=== PATIENT | male | born 1965 | race Caucasian/White ===

== ENCOUNTER 2023-12-29 09:06 | Observation (INO) | payer OTHER, SELFPAY ==
[2023-12-29 09:18] VITALS: BP 123/83; PULSE 69; RESP 18; TEMP 36.3; O2SAT 99; BMI 21.6
--- NOTE | 2023-12-29 09:31 | ED.GENADULT ---
HPI - General Adult General Time Seen by Provider: 09:33 Date Seen: 12/29/23 Stated complaint: Edema, shortness of breath Time Seen by Provider: 12/29/23 09:31 Source: patient and RN notes reviewed Mode of arrival: ambulatory Limitations: no limitations History of Present Illness HPI narrative: This 58-year-old male is coming in with 3 weeks of edema. He notes the edema started about a week after being hospitalized for 5 days with an E coli diarrheal illness. The diarrhea has subsided. He does have underlying HIV and states he is viral load is undetectable. He notes that he has been getting swelling from the chest down, does admit that he started to feel short of breath which brought him in. He also feels like his face feels edematous. He feels pain in his legs from the swelling. He notes his scrotum is swollen. He has dyspnea on exertion. He has had no chest pain, no coughing. He did go to [facility] yesterday and left after waiting for 5 hours to be seen. He has had no fevers or chills. He does endorse some abdominal bloating and generalized abdominal pain with this. Diarrhea has subsided and not return from his initial illness. Related Data Home Medications ?Medication ?Instructions ?Recorded ?Confirmed bupropion HCl 150 mg tablet,12 hr 150 mg PO DAILY 12/29/23 12/29/23 sustained-release duloxetine 30 mg capsule,delayed 30 mg PO DAILY 12/29/23 12/29/23 release emtricitabine 200 mg-rilpivirine 1 tab PO DAILY 12/29/23 12/29/23 25 mg-tenofovir alafenam 25 mg tablet (Alexaefsey) famotidine 20 mg tablet 20 mg PO DAILY 12/29/23 12/29/23 folic acid 1 mg tablet 1 mg PO DAILY 12/29/23 12/29/23 meloxicam 7.5 mg tablet 7.5 mg PO DAILY 12/29/23 12/29/23 multivitamin-ferrous 1 tab PO DAILY 12/29/23 12/29/23 fumarate-folic acid 18 mg-400 mcg tablet (Certavite-Antioxidant) oxybutynin chloride 5 mg tablet 5 mg PO DAILY 12/29/23 12/29/23 propranolol 10 mg tablet 10 mg PO DAILY 12/29/23 12/29/23 rosuvastatin 10 mg tablet 10 mg PO QPM 12/29/23 12/29/23 thiamine mononitrate (vit B1) 100 100 mg PO DAILY 12/29/23 12/29/23 mg tablet (Vitamin B-1 (mononitrate)) trazodone 100 mg tablet 200 mg PO QPM PRN 12/29/23 12/29/23 Allergies Allergy/AdvReac Type Severity Reaction Status Date / Time No Known Drug Allergies Allergy Verified 12/29/23 09:28 Review of Systems Status of ROS: Reports: 6 or more systems reviewed and unremarkable except as noted in History and below Exam Const: Vital Signs, click to edit/add: Vital Signs - 24 hr 12/29/23 09:18 Temperature 97.3 F L Pulse Rate [Left P ulse Oximeter] 69 Respiratory Rate 18 Blood Pressure [Le ft Upper Arm] 123/83 Pulse Oximetry 99 Oxygen Delivery Me thod Room Air This 58-year-old male is alert, interactive, no apparent distress. Sclera clear, pupils equal round reactive. Extraocular muscles intact. Face is atraumatic, do not appreciate significant facial swelling but patient notes that he feels his face is more swollen. Is able speak in complete sentences, or pharynx normal. Neck is slender, no jugular venous distension, no cervical adenopathy, no thyromegaly masses or nodules. Lungs are clear, good air entry, no wheezing or crackles, no tachypnea, no accessory muscle use. CV regular rate and rhythm, no murmur, normal S1-S2, no S3-S4. Abdomen is soft, not distended, no organomegaly, maybe mild discomfort generally but there is certainly no rebound or guarding, feel no masses, no organomegaly. He does have profound pedal and lower extremity edema to the knees, there is some mild excoriations without infection. The pitting edema is 3 to 4+. Scrotum is edematous as well. Documenting provider has reviewed patient's vital signs: yes Course Course ED Course: Will look at EKG and troponin, full complement of labs on this patient. He will be monitored on pulse oximetry here. Clinically he does not seem to have any pulmonary edema and think a two view chest x-ray should be sufficient. Do have concerns with his abdominal discomfort that it could be edema or ascites. Do think we need to consider doing CT imaging of his abdomen and patient does agree to do so. He is not hypoxic, no hemodynamic compromise at this point. Need to consider reasons for his edema. Thus, labs and imaging will be done. Reevaluation(s) Time of Reevaluation #1: 11:56 Reevaluation #1: Reviewed findings of anasarca with patient. Discussed observation versus outpatient management. We will give him a dose of IV Lasix here. He is preferring to come into the hospital so that he can have the echo done, work on diuresis. This is a new diagnosis for him. Have discussed with him that I have talked to our hospitalist, they are willing to put him under observation. Did review with him that the hospitalists brought up that he is on meloxicam, this could be an offending agent. The anasarca is causing the patient's some shortness of breath, significant lower extremity pain, new diagnosis for this patient in etiology is not completely clear at this time. Consultations Consultation #1: Did review with the hospitalist Dr. Tellez. He does agree to hospitalize this patient, likely observation however. Echo will be ordered. Will add on a urinalysis at his request, appropriate to check for protein. We will give this patient 60 mg IV Lasix. Time: 11:58 Vital Signs Vital signs: Initial Vital Signs Temperature 97.3 F L 12/29/23 09:18 Temperature Source Temporal Artery Scan 12/29/23 09:18 Pulse Rate 69 12/29/23 09:18 Pulse Rhythm Regular 12/29/23 09:18 Pulse Strength 3+ Normal 12/29/23 09:18 Respiratory Rate 18 12/29/23 09:18 Blood Pressure 123/83 12/29/23 09:18 Blood Pressure Mean 96 12/29/23 09:18 Blood Pressure Position Sitting 12/29/23 09:18 Pulse Oximetry 99 12/29/23 09:18 Oxygen Delivery Method Room Air 12/29/23 09:18 Vital Signs Temperature 97.3 F L 12/29/23 09:18 Pulse Rate 69 12/29/23 09:18 Respiratory Rate 18 12/29/23 09:18 Blood Pressure 123/83 12/29/23 09:18 Pulse Oximetry 99 12/29/23 09:18 Oxygen Delivery Method Room Air 12/29/23 09:18 Temperature 97.3 F L 12/29/23 09:18 Pulse Rate 69 12/29/23 09:18 Respiratory Rate 18 12/29/23 09:18 Blood Pressure 123/83 12/29/23 09:18 Pulse Oximetry 99 12/29/23 09:18 Oxygen Delivery Method Room Air 12/29/23 09:18 Medical Decision Making Lab Data Lab results reviewed: Yes I reviewed the patient's lab results Labs: Lab Results 12/29/23 Range/Units 09:50 WBC 5.09 (4.50-11.00) K/uL RBC 2.79 L (4.30-5.90) m/uL Hgb 9.7 L (13.5-17.5) gm/dL Hct 30.9 L (37.0-53.0) % MCV 111 H (80-100) fL MCH 35 H (26-34) pg MCHC 31 L (32-36) gm/dL RDW Coeff of Ebenezer 15.3 (11.5-15.5) % Plt Count 264 (140-440) K/uL Neut % (Auto) 64.0 (42.0-72.0) % Lymph % (Auto) 16.7 L (20-44) % Bowie % (Auto) 13.2 H (0.0-11.0) % Eos % (Auto) 4.7 (0.0-7.0) % Baso % (Auto) 1.0 (0.0-3.0) % Neut # (Auto) 3.26 (1.7-7.0) K/uL Lymph # (Auto) 0.90 (0.90-2.90) K/uL Bowie # (Auto) 0.70 (0.00-0.90) K/UL Eos # (Auto) 0.24 (0.00-0.50) K/uL Baso # (Auto) 0.05 (0.00-0.30) K/uL Abs Immat Gran (auto) 0.02 (0.00-0.30) K/uL Imm/Tot Granulo (auto) 0.4 % Sodium 138 (135-149) mmol/L Potassium 4.3 (3.6-5.1) mmol/L Chloride 111 (96-114) mmol/L Carbon Dioxide 23 (20-32) mmol/L Anion Gap 4 L (7-15) mEq/L BUN 24 (7-30) mg/dL Creatinine 1.0 (0.5-1.5) mg/dL Estimated Creat Clear 77.26 Estimated GFR 88 ml/min Glucose 88 (60-115) mg/dL Calcium 8.6 (8.4-10.6) mg/dL Magnesium 2.3 (1.5-2.6) mg/dL Total Bilirubin 0.2 (0.1-1.5) mg/dL Direct Bilirubin 0.2 (0.0-0.5) mg/dL AST 21 (12-35) U/L ALT 9 (4-50) U/L Alkaline Phosphatase 50 (40-150) U/L Troponin I < 0.01 L (0.01-0.04) ng/mL C-Reactive Protein 1.3 H (0.5-1.0) mg/dL NT-Pro-B Natriuret Pep 2920 pg/mL Total Protein 6.2 (6.0-8.3) g/dL Albumin 3.6 (3.3-5.0) g/dL TSH 2.130 (0.270-4.200) uIU/mL Imaging Data Chest x-ray: Attestation: I have reviewed the pertinent imaging results. My impression: See blunting of the costophrenic angles, suggests small pleural effusions. I do not appreciate overt congestive heart failure within the lung parenchyma a my preliminary review. Radiologist's impression: Patient: DEVORA HATCH Facility:?[facility] Patient ID:?[id number] Site Patient ID:?[id number]. Site :?[id number] Study:?XRay-Chest 2 VIEW-12/29/2023 10:13:02 AM Ordering Physician:?Todd Walton Final Report: Indication: SOB, edema. Technique: Chest 2 views. Comparison: None. Findings/Impression: Cardiovascular and mediastinum: Heart size and vasculature are normal in caliber and appearance. Lungs and pleural spaces: Small bilateral pleural effusions with underlying basilar consolidations, at least partially reflecting atelectasis. No pneumothorax. Bones and soft tissues: No significant findings. Dictated by Lenard Kan MD @ 12/29/2023 10:30:13 AM (Electronic Signature) CT scan - abdomen: Attestation: I have reviewed the pertinent imaging results. Radiologist's impression: Patient: DEVORA HATCH Facility:?[facility] Patient ID:?[id number] Site Patient ID:?[id number]. Site :?[id number] Study:?CT-Abdomen/Pelvis W/71CC [id number]/28/2024 10:31:44 AM Ordering Physician:?Todd Walton Final Report: INDICATION: Edema, shortness of breath. TECHNIQUE: CT abdomen and pelvis acquired with 71 cc Omnipaque 370 IV contrast. COMPARISON: None. FINDINGS: Lower chest: Small bilateral pleural effusions with underlying basilar consolidations, least partially reflecting atelectasis. Liver: Unremarkable. Normal in size and attenuation. No suspicious masses. Gallbladder and bile ducts: Unremarkable. No stones or inflammation. No biliary dilatation. Pancreas: Unremarkable. No mass or inflammation. Spleen: Unremarkable. Normal in size. No masses. Adrenal glands: Left adrenal nodule measures 2.3 centimeters and approximately 45 Hounsfield units (2/33). Unremarkable right adrenal gland Kidneys: Unremarkable. No suspicious masses, stones, or hydronephrosis. GI tract: Unremarkable. Normal in caliber. No sign of mass or inflammation. Normal appendix. Vasculature: Abdominal aorta is normal in caliber. Mesenteric arteries are patent. Lymph nodes: No lymphadenopathy. Peritoneum/Abdominal Wall: Moderate anasarca. No free peritoneal air or significant free fluid. Pelvis: Unremarkable. Bones: Unremarkable for age. IMPRESSION: 1. Moderate anasarca with small bilateral pleural effusions, indicating volume overload. 2. Otherwise, no acute abnormalities in the abdomen or pelvis. 3. Left adrenal 2.3 cm nodule is indeterminate. Recommend nonemergent adrenal protocol CT for further characterization. Please note that all CT scans at this facility use dose modulation, iterative reconstruction, and/or weight-based dosing when appropriate to reduce radiation dose to as low as reasonably achievable. Dictated by Lenard Kan MD @ 12/29/2023 10:45:11 AM (Electronic Signature) ECG Data Attestation: I personally reviewed and interpreted this ECG as follows: (Normal sinus rhythm, 62 beats per minute. Q-waves V1 V2 with flipped T-waves but no ST segment change.) Prior ECG tracings: not available for review Discharge Plan Discharge Clinical Impression: Anasarca Patient Disposition: Admitted As Observation Prescriptions: No Action bupropion HCl 150 mg tablet sustained-release 12 hr 150 mg PO DAILY meloxicam 7.5 mg tablet 7.5 mg PO DAILY propranolol 10 mg tablet 10 mg PO DAILY famotidine 20 mg tablet 20 mg PO DAILY trazodone 100 mg tablet 200 mg PO QPM PRN folic acid 1 mg tablet 1 mg PO DAILY oxybutynin chloride 5 mg tablet 5 mg PO DAILY rosuvastatin 10 mg tablet 10 mg PO QPM duloxetine 30 mg capsule,delayed release(DR/EC) 30 mg PO DAILY Certavite-Antioxidant 18-400 mg-mcg tablet 1 tab PO DAILY thiamine mononitrate (vit B1) [Vitamin B-1 (mononitrate)] 100 mg tablet 100 mg PO DAILY Odefsey 200-25-25 mg tablet 1 tab PO DAILY Follow Up/Referrals: Provider,Not a Local [Primary Care Provider] -
[2023-12-29 09:39] VITALS: O2SAT 94
--- NOTE | 2023-12-29 09:39 | CRLHL7_ITS ---
For Patients: As a result of the Century Cures Act, medical imaging exams and procedure reports are released immediately into your electronic medical record. You may view this report before your referring provider. If you have questions, please contact your health care provider. INDICATION: Edema, shortness of breath. TECHNIQUE: CT abdomen and pelvis acquired with 71 cc Omnipaque 370 IV contrast. COMPARISON: None. FINDINGS: Lower chest: Small bilateral pleural effusions with underlying basilar consolidations, least partially reflecting atelectasis. Liver: Unremarkable. Normal in size and attenuation. No suspicious masses. Gallbladder and bile ducts: Unremarkable. No stones or inflammation. No biliary dilatation. Pancreas: Unremarkable. No mass or inflammation. Spleen: Unremarkable. Normal in size. No masses. Adrenal glands: Left adrenal nodule measures 2.3 centimeters and approximately 45 Hounsfield units (2/33). Unremarkable right adrenal gland Kidneys: Unremarkable. No suspicious masses, stones, or hydronephrosis. GI tract: Unremarkable. Normal in caliber. No sign of mass or inflammation. Normal appendix. Vasculature: Abdominal aorta is normal in caliber. Mesenteric arteries are patent. Lymph nodes: No lymphadenopathy. Peritoneum/Abdominal Wall: Moderate anasarca. No free peritoneal air or significant free fluid. Pelvis: Unremarkable. Bones: Unremarkable for age. IMPRESSION: 1. Moderate anasarca with small bilateral pleural effusions, indicating volume overload. 2. Otherwise, no acute abnormalities in the abdomen or pelvis. 3. Left adrenal 2.3 cm nodule is indeterminate. Recommend nonemergent adrenal protocol CT for further characterization. Please note that all CT scans at this facility use dose modulation, iterative reconstruction, and/or weight-based dosing when appropriate to reduce radiation dose to as low as reasonably achievable. Dictated by Lenard Kan MD @ 12/29/2023 10:45:11 AM (Electronically Signed)
--- NOTE | 2023-12-29 09:40 | CRLHL7_ITS ---
For Patients: As a result of the Cures Act, medical imaging exams and procedure reports are released immediately into your electronic medical record. You may view this report before your referring provider. If you have questions, please contact your health care provider. Indication: SOB, edema. Technique: Chest 2 views. Comparison: None. Findings/Impression: Cardiovascular and mediastinum: Heart size and vasculature are normal in caliber and appearance. Lungs and pleural spaces: Small bilateral pleural effusions with underlying basilar consolidations, at least partially reflecting atelectasis. No pneumothorax. Bones and soft tissues: No significant findings. Dictated by Lenard Kan MD @ 12/29/2023 10:30:13 AM (Electronically Signed)
[2023-12-29 10:00] LABS: Basophils Absolute Auto 0.05 K/uL (0.00-0.30); Eosinophils Absolute Auto 0.24 K/uL (0.00-0.50); Eosinophils Percent Auto 4.7 % (0.0-7.0); Hematocrit 30.9 % (37.0-53.0); Hemoglobin* 9.7 gm/dL (13.5-17.5); Immature Granulocytes Abs Auto 0.02 K/uL (0.00-0.30); Immature Granulocytes Pct Auto 0.4 %; Lymphocytes Percent Auto 16.7 % (20-44); Mean Corpuscular HGB Conc 31 gm/dL (32-36); Mean Corpuscular Hemoglobin 35 pg (26-34); Mean Corpuscular Volume 111 fL (80-100); Monocytes Percent Auto 13.2 % (0.0-11.0); Neutrophils Absolute Auto 3.26 K/uL (1.7-7.0); Platelet Count* 264 K/uL (140-440); RDW Coefficient of Variation % 15.3 % (11.5-15.5); Red Blood Count 2.79 m/uL (4.30-5.90); White Blood Count* 5.09 K/uL (4.50-11.00)
[2023-12-29 10:03] LABS: Slide Review Reflex No
[2023-12-29 10:16] LABS: Chloride* 111 mmol/L (96-114)
[2023-12-29 10:17] LABS: Albumin* 3.6 g/dL (3.3-5.0); Potassium* 4.3 mmol/L (3.6-5.1); Sodium* 138 mmol/L (135-149)
[2023-12-29 10:19] LABS: Est. Creatinine Clearance* 77.26; Estimated Glomerular Filt Rate 88 ml/min
[2023-12-29 10:20] LABS: Alanine Aminotransferase* 9 U/L (4-50); Alkaline Phosphatase* 50 U/L (40-150); Anion Gap 4 mEq/L (7-15); Aspartate Amino Transferase* 21 U/L (12-35); Bilirubin Direct* 0.2 mg/dL (0.0-0.5); Bilirubin Total* 0.2 mg/dL (0.1-1.5); Blood Urea Nitrogen* 24 mg/dL (7-30); Carbon Dioxide* 23 mmol/L (20-32); Glucose* 88 mg/dL (60-115); Total Protein* 6.2 g/dL (6.0-8.3)
[2023-12-29 10:21] LABS: Calcium* 8.6 mg/dL (8.4-10.6); Magnesium* 2.3 mg/dL (1.5-2.6)
[2023-12-29 10:23] LABS: C Reactive Protein* 1.3 mg/dL (0.5-1.0)
[2023-12-29 10:34] LABS: NT Pro B Type NatriureticPept* 2920 pg/mL; Troponin I* < 0.01 ng/mL (0.01-0.04)
[2023-12-29] MEDS: FUROSEMIDE 10 MG/ML inj 40 MG IVP (13:14)
[2023-12-29 13:23] VITALS: BP 137/81; PULSE 68; RESP 18; TEMP 36.5; O2SAT 99; BMI 21.7
[2023-12-29 13:36] LABS: Appearance Urine Clear (Clear); Bilirubin Urine Negative (Negative); Blood Urine Trace-intact (Negative); Color Urine Light yellow (Yellow); Glucose Urine Negative (Negative); Ketones Urine Negative (Negative); Leukocyte Esterase Urine Negative (Negative); Nitrite Urine Negative (Negative); Protein Urine Negative (Negative); Specific Gravity Urine 1.025 (1.000-1.030); Urobilinogen Urine 0.2 (0.2-1.0)
[2023-12-29 13:53] LABS: RBC Urine 0-2 (0-2); WBC Urine 0-2 (0-5)
--- NOTE | 2023-12-29 13:53 | PM.IMHP1 ---
Hospitalist- H&P: HPI History of Present Illness Date Seen: 12/29/23 Chief complaint: Edema, shortness of breath Narrative: Edmar Zamora is a 58 year old man this with a 3 week history of increasing edema and a 1 week history of increasing dyspnea with exertion. Historically has not had edema. Does not have cardiopulmonary medical conditions. Has not had hepatic or renal conditions. Does have HIV positive status and is being actively treated for the same successfully. Does take meloxicam 7.5 mg daily for arthralgias, long-term. Over the past 3-4 weeks he has been misusing ibuprofen 1000 mg 4-5 times daily sometimes in combination with acetaminophen 1000 mg to treat the dental pain. He has not seen a dentist for this. Notes that the analgesia he obtains from this has been adequate in satisfactory. Over the past week he has had intermittent episodes of dyspnea with exertion. Denies paroxysmal nocturnal dyspnea, orthopnea, or dyspnea at rest. Denies chest heaviness, pressure, tightness, or pain. Denies palpitations or chest fluttering. Denies syncope or near-syncope. Denies dysuria, urgency, frequency, hematuria. Denies frothy urine. Late November 2023 to early December 2023 patient had severe diarrhea illness. His normal weight is 135 lb. In consequence of this diarrhea illness his weight was down to 105 lb. He was hospitalized at [facility] for the same. He was found to have enterotoxigenic E coli and treated with short course of ciprofloxacin. Diarrhea resolved. Since then his appetite has improved substantially such that he tells me he is eating 3-4 times what he was eating when he was ill. He has a history of anal canal cancer. Was treated with radiation therapy and chemotherapy for the same starting in 2017 through 2018. Since then he has had 12-15 bowel movements daily. Has had increased anal pain. He is only now starting to work with a open cut examiner at [facility] in regard to this. Has ongoing followup scheduled for the same. He tells me that since the diarrhea illness resolved in early December, he is back to his usual bowel elimination patterns. Review of Systems Status of ROS: Reports: 6 or more systems reviewed and unremarkable except as noted in History and below Narrative: Continues to smoke regularly. History of alcohol use disorder in remission. Not actively drinking alcohol. Denies use of any other street or recreational drugs. Receives his medical care at [facility]. Only since his recent diarrhea illness has he been receiving more care for the problems that he has had for some time, including 12-15 bowel movements daily and anal pain. Once again he has not seen a dentist even though he has had dentalgia now for well over a month. 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 non-steroidal anti-inflammatories (NSAID) (ICD-10) Tubular adenoma of colon ?D12.6 - Benign neoplasm of colon, unspecified (ICD-10) History of anal cancer ?Z85.048 - Personal history of other malignant neoplasm of rectum, rectosigmoid junction, and anus (ICD-10) History of alcohol use disorder ?Z87.898 - Personal history of other specified conditions (ICD-10) Tobacco use disorder ?F17.200 - Nicotine dependence, unspecified, uncomplicated (ICD-10) Moderate recurrent major depression ?F33.1 - Major depressive disorder, recurrent, moderate (ICD-10) Failure to thrive Protein calorie malnutrition ?E46 - Unspecified protein-calorie malnutrition (ICD-10) Intestinal infection due to enterotoxigenic E. coli ?A04.1 - Enterotoxigenic Escherichia coli infection (ICD-10) HIV positive ?Z21 - Asymptomatic human immunodeficiency virus [HIV] infection status (ICD-10) Social History Narrative: Receives medical care at [facility]. DNR/DNI resuscitation. Sister, Merlyn Kerr, is his POA should that be needed, . 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 Meds Home Medications and Allergies Home Medications ?Medication ?Instructions ?Recorded ?Confirmed ?Type acetaminophen 500 mg tablet 1,250 mg PO .2-3X/DAY PRN 12/29/23 12/29/23 History bupropion HCl 150 mg tablet,12 hr 150 mg PO DAILY 12/29/23 12/29/23 History sustained-release duloxetine 30 mg capsule,delayed 30 mg PO DAILY 12/29/23 12/29/23 History release emtricitabine 200 mg-rilpivirine 1 tab PO DAILY 12/29/23 12/29/23 History 25 mg-tenofovir alafenam 25 mg tablet (Odefsey) famotidine 20 mg tablet 20 mg PO HS 12/29/23 12/29/23 History folic acid 1 mg tablet 1 mg PO DAILY 12/29/23 12/29/23 History ibuprofen 200 mg tablet 1,000 mg PO .2-3X/DAY PRN 12/29/23 12/29/23 History meloxicam 7.5 mg tablet 7.5 mg PO DAILY 12/29/23 12/29/23 History multivitamin-ferrous 1 tab PO DAILY 12/29/23 12/29/23 History fumarate-folic acid 18 mg-400 mcg tablet (Certavite-Antioxidant) ondansetron HCl 4 mg tablet 4 mg PO Q8H PRN 12/29/23 12/29/23 History oxybutynin chloride 5 mg tablet 5 mg PO HS 12/29/23 12/29/23 History propranolol 10 mg tablet 10 mg PO DAILY 12/29/23 12/29/23 History rosuvastatin 10 mg tablet 10 mg PO DAILY 12/29/23 12/29/23 History thiamine mononitrate (vit B1) 100 100 mg PO DAILY 12/29/23 12/29/23 History mg tablet (Vitamin B-1 (mononitrate)) trazodone 100 mg tablet 200 mg PO HS 12/29/23 12/29/23 History trazodone 50 mg tablet 25 mg PO TIDWMEAL 12/29/23 12/29/23 History Allergies Allergy/AdvReac Type Severity Reaction Status Date / Time No Known Drug Allergies Allergy Verified 12/29/23 09:28 Exam Narrative: Exam Narrative: I examine him in the emergency department. Appears comfortable no acute distress. Vision and hearing are adequate. Alert and oriented x4. Friendly, articulate, cooperative. Normal external auditory canals and tympanic membranes. Midline nasal septum. Dentition in only moderate repair. Tobacco stained teeth. No tenderness to palpation of face teeth and jaw. No icterus. Conjugate gaze. No nystagmus. Pupils equally round and reactive to light and accommodation. Neck is supple. Midline trachea. No JVD or hepatojugular reflux. No carotid bruits. No head neck lymphadenopathy. No axillary lymphadenopathy. Lungs are clear to auscultation. May have some end inspiratory fine crackles on the left base otherwise clear to auscultation without wheezing or rhonchi. Chest wall excursions are full with respiratory efforts. Does not have CVA tenderness to thumping. Heart tones with regular rhythm, normal S1-S2 without murmur, gallop, or rub. PMI not laterally displaced. Abdomen with active bowel sounds, soft, nontender. No organomegaly or masses. Pitting edema in feet, legs, thighs, presacral area. Has swelling in scrotum and on his phalus. Protuberant abdomen with possible skin edema. Loss of skin marking in fingers and difficulty for patient to handle a pen or pencil when writing due to his sense of swelling in his hands. Skin is intact. No focal motor neurologic deficits. Cranial nerves 3-12 grossly normal. No tremor, asterixis, or ataxia. Independent in transfer, station, and gait. Const: Vital Signs, click to edit/add: Vital Signs - 24 hr 12/29/23 09:18 12/29/23 09:39 Temperature 97.3 F L Pulse Rate [Left P ulse Oximeter] 69 Respiratory Rate 18 Blood Pressure [Le ft Upper Arm] 123/83 Pulse Oximetry 99 94 Oxygen Delivery Me thod Room Air Hospitalist - H&P: Result Labs Labs: Short CBC 12/29/23 Range/Units 09:50 WBC 5.09 (4.50-11.00) K/uL Hgb 9.7 L (13.5-17.5) gm/dL Hct 30.9 L (37.0-53.0) % Plt Count 264 (140-440) K/uL BMP 12/29/23 09:50 Sodium 138 Potassium 4.3 Chloride 111 Carbon Dioxide 23 BUN 24 Creatinine 1.0 Glucose 88 Calcium 8.6 Cardiac Enzymes 12/29/23 Range/Units 09:50 Troponin I < 0.01 L (0.01-0.04) ng/mL Liver Function 12/29/23 Range/Units 09:50 Total Bilirubin 0.2 (0.1-1.5) mg/dL Direct Bilirubin 0.2 (0.0-0.5) mg/dL AST 21 (12-35) U/L ALT 9 (4-50) U/L Alkaline Phosphatase 50 (40-150) U/L Albumin 3.6 (3.3-5.0) g/dL Urine 12/29/23 Range/Units 13:20 Urine Color Light yellow (Yellow) Urine Appearance Clear (Clear) Urine pH 7.0 (5.0-8.5) Ur Specific Flomot 1.025 (1.000-1.030) Urine Protein Negative (Negative) Urine Glucose (UA) Negative (Negative) ECG ECG interpretation date: 12/29/23 Interpretation: Normal sinus rhythm. Imaging Chest x-ray: Attestation: I have reviewed the pertinent imaging results. Radiologist's impression: Minimal bilateral pleural effusion. Minimal atelectasis. CT scan - abdomen: Radiologist's impression: 1. Moderate anasarca with small bilateral pleural effusions, indicating volume overload. 2. Otherwise, no acute abnormalities in the abdomen or pelvis. 3. Left adrenal 2.3 cm nodule is indeterminate. Recommend nonemergent adrenal protocol CT for further characterization. Assessment and Plan Assessment and plan (1) NSAID long-term use: Problem comment: - meloxicam 7.5 mg once daily Status: Acute (2) NSAIDs adverse reaction: Problem comment: - suspect anasarca related to misuse of ibuprofen over last 3+ weeks to treat dental pain Status: Acute (3) Anasarca: Problem comment: - Noted for past 3 weeks - D/Dx: iatrogenic related to misuse of NSAIDs, re-feeding syndrome, protein losing nephropathy, cardiac, liver, kidney - stop all NSAIDs, use APAP and oxycodone for pain control for now and must see dentist regarding dental pain - initiate furosemide 40 mg IV and start furosemide 40 mf po tomorrow AM - TTE ordered - check urine analysis Status: Acute (4) Failure to thrive: Problem comment: - Late November 2023, eventually found to have enterotoxigenic e coli diarrhea that resolved with treatment - weight was as low as 106 pounds, normal weight 135 pounds, on 12/29/23 weight was 148# at his home, with anasarca - may have developed an element of re-feeding syndrome since discharged from [facility] about 3 weeks ago. Status: Acute (5) Pain, dental: Problem comment: - has not seen dentist about this - has been misusing ibuprofen 1,000 mg po q 4-6 hours and acetaminophen 1,000 mg po q 4-6 hours for pain for past 2-3 weeks Status: Acute (6) HIV positive: Problem comment: - Follows at [facility], treated with ODEFSEY (fdfqijkuaeldq-gwstxzojlal-lwuasneud alafenamide) Status: Acute (7) Tobacco use disorder: Problem comment: - on-going Status: Acute (8) Elevated brain natriuretic peptide (BNP) level: Problem comment: - furosemide 40 mg IV - transthoracic echocardiogram pending Status: Acute (9) Anemia: Problem comment: - hemoglobin 9.7 on 12/29/2023 Status: Acute Plan 1. Reviewed impression and recommendations with patient. 2. Stress that we can initiate efforts to assess and support him at this time but he may require additional assessment and interventions beyond what we would initiate here in our hospital at this time. Urged him that he will need follow up with his [facility] physician staff there. 3. Answered his questions to satisfaction. 4. Patient agreeable with above stated plans and recommendations. Total Time Spent Total Time Spent: 70 minutes
[2023-12-29 15:00] VITALS: BP 119/86; PULSE 68; PULSE 84; RESP 18; TEMP 36.6; O2SAT 97
[2023-12-29] MEDS: ACETAMINOPHEN 325 MG TABLET 650 MG PO (17:46)
[2023-12-29] MEDS: OXYCODONE 5 MG TABLET PO ×2 (18:28→22:09)
[2023-12-29 19:00] VITALS: BP 114/66; PULSE 82; RESP 16; TEMP 36.5; O2SAT 96
--- NOTE | 2023-12-29 19:55 | PC.NURSE ---
Pt. VSS. A & O x4. Ambulates independently. Tolerates a regular diet. IV in left AC and intact. Plus 3 pitting edema in BLE with pain rating between 5-7. Complains of SOB with exertion. On room air.
[2023-12-29] MEDS: TRAZODONE HCL 50 MG TABLET 200 MG PO (20:37)
[2023-12-29] MEDS: SODIUM CHLORIDE 0.9 % (FLUSH) 10 ML SYRINGE 5 ML IVF (20:37)
[2023-12-29] MEDS: oxyBUTYnin chloride 5 MG TABLET PO (20:37)
[2023-12-29] MEDS: FAMOTIDINE 20 MG TABLET PO (20:37)
[2023-12-29 22:00] VITALS: BP 117/83; PULSE 66; PULSE 67; RESP 16; TEMP 36.3; O2SAT 97
[2023-12-29] MEDS: CYCLOBENZAPRINE HCL 10 MG TABLET PO (22:09)
[2023-12-30] VITALS (9 sets, daily range): BP systolic 108–134; BP diastolic 65–85; PULSE 68–87; RESP 16–18; TEMP 36.4–36.8; O2SAT 94–99
[2023-12-30] MEDS: OXYCODONE 5 MG TABLET PO ×3 (02:50→14:59)
[2023-12-30] MEDS: ACETAMINOPHEN 325 MG TABLET 650 MG PO ×3 (02:50→14:58)
[2023-12-30 06:29] LABS: Hematocrit 31.6 % (37.0-53.0); Hemoglobin* 10.2 gm/dL (13.5-17.5); Mean Corpuscular HGB Conc 32 gm/dL (32-36); Mean Corpuscular Hemoglobin 35 pg (26-34); Mean Corpuscular Volume 108 fL (80-100); Platelet Count* 275 K/uL (140-440); Red Blood Count 2.92 m/uL (4.30-5.90); White Blood Count* 3.86 K/uL (4.50-11.00)
[2023-12-30 06:30] LABS: Slide Review Reflex No
[2023-12-30 06:43] LABS: Chloride* 109 mmol/L (96-114); Sodium* 139 mmol/L (135-149)
[2023-12-30 06:45] LABS: Est. Creatinine Clearance* 73.59; Estimated Glomerular Filt Rate 88 ml/min
[2023-12-30 06:46] LABS: Anion Gap 7 mEq/L (7-15); Blood Urea Nitrogen* 22 mg/dL (7-30); Carbon Dioxide* 23 mmol/L (20-32); Glucose* 88 mg/dL (60-115); Phosphorus* 4.4 mg/dL (2.5-4.5)
[2023-12-30 06:47] LABS: Calcium* 8.6 mg/dL (8.4-10.6); Magnesium* 2.4 mg/dL (1.5-2.6)
--- NOTE | 2023-12-30 06:59 | PC.NURSE ---
SHIFT NOTE : Pt pleasant, cooperative, A&O. VSS on RA. Tele shows NSR with a prolonged QT, MD updated. Up independent and tolerating well. Pt reports pain in his legs and DAY, reports relief from Tylenol and oxycodone. Denies N/V and CP. Pt to have an echo today. Pitting edema in BLE, TEDS applied.
[2023-12-30 07:01] LABS: NT Pro B Type NatriureticPept* 1510 pg/mL; Troponin I* < 0.01 ng/mL (0.01-0.04)
[2023-12-30] MEDS: PROPRANOLOL 20 MG TABLET 10 MG PO (08:38)
[2023-12-30] MEDS: DULOXETINE 30 MG CAPSULE DR PO (08:38)
[2023-12-30] MEDS: FUROSEMIDE 40 MG TABLET PO (08:38)
[2023-12-30] MEDS: ROSUVASTATIN CALCIUM 10 MG TABLET PO (08:38)
[2023-12-30] MEDS: THIAMINE 100 MG TABLET PO (08:39)
[2023-12-30] MEDS: FOLIC ACID 1 MG TABLET PO (08:39)
[2023-12-30] MEDS: buPROPion HCL SR 150 MG TAB PO (08:39)
[2023-12-30] MEDS: MULTIVITAMIN/MINERALS 1 TABLET 1 TAB PO (08:39)
--- NOTE | 2023-12-30 10:07 | NUTR.NU ---
MEREDITHN with MD consult for low sodium diet education. Patient admitted for anasarca. Current weight 139 lb 1 oz; height 5ft 9in; BMI 20.5 kg/m2. Current diet is 2 gram sodium. Meal intakes since admit have been adequate at 100% x2. RDN visited with patient whom reports he has been trying to change his diet recently. He has been focusing on whole foods such as raw fruits and vegetables, and has been picking up fresh chicken and meat. He lives alone and cooks for only himself which he reports can be difficult at times. He has also been trying to use less salt-containing seasonings. He agreed to receive diet education related to low sodium diet. Verbal and written information provided. Recommend limiting sodium to 2,000 mg per day. Discussed foods recommended and to avoid. Handouts provided from [facility] [employer] on heart healthy nutrition therapy, sodium content of foods, heart healthy label reading tips, sodium-free flavoring tips and heart healthy cooking and shopping tips. Patient verbalized understanding. RDN's contact information was provided and patient was encouraged to call with questions.
[2023-12-30] MEDS: SODIUM CHLORIDE 0.9 % (FLUSH) 10 ML SYRINGE 5 ML IVF ×2 (14:59→21:05)
--- NOTE | 2023-12-30 16:08 | PM.IMPN1 ---
Progress Note: A&P Assessment and plan (1) Anasarca: Problem details: Noted for past 3 weeks. Renal and liver function appears normal, no proteinuria. Denies chest pain. Responded well to IV lasix (down 3kg) - D/Dx: iatrogenic related to misuse of NSAIDs, re-feeding syndrome, cardiac - stop all NSAIDs, use APAP and oxycodone for pain control for now and must see dentist regarding dental pain - Continue oral lasix 40mg with renal monitoring - TTE ordered, pending and will likely need to be done as an outpatient Status: Acute (2) Prolonged QT interval: Problem details: EKG shows long QT. Pharmacy reviewed medications and he is on a relatively high dose of trazodone. -Will decrease trazodone to 100mg QHS -Repeat EKG with PCP Status: Acute (3) Anemia: Problem details: hemoglobin 9.7 on 12/29/2023, improved to 10.2 with diuresis. Status: Acute (4) Elevated brain natriuretic peptide (BNP) level: Problem details: - Continue furosemide 40 mg PO - transthoracic echocardiogram pending Status: Acute (5) Failure to thrive: Problem details: - Late November 2023, eventually found to have enterotoxigenic e coli diarrhea that resolved with treatment - weight was as low as 106 pounds, normal weight 135 pounds, on 12/29/23 weight was 148# at his home, with anasarca - may have developed an element of re-feeding syndrome since discharged from [facility] about 3 weeks ago. Status: Acute (6) Pain, dental: Problem details: - has not seen dentist about this - has been misusing ibuprofen 1,000 mg po q 4-6 hours and acetaminophen 1,000 mg po q 4-6 hours for pain for past 2-3 weeks Status: Acute (7) NSAIDs adverse reaction: Problem details: - suspect anasarca related to misuse of ibuprofen over last 3+ weeks to treat dental pain Status: Acute (8) NSAID long-term use: Problem details: - meloxicam 7.5 mg once daily on hold Status: Acute (9) Tobacco use disorder: Problem details: - on-going Status: Acute (10) HIV positive: Problem details: - Follows at [facility], treated with ODEFSEY (orelujjauobkk-yasercjhsvb-aksqkaoim alafenamide) Status: Acute Plan Continue diuresis with electrolyte/renal monitoring Likely will need outpatient echo, follow up depends on results Subjective Date Seen: 12/30/23 Interval history: Edmar is seen and examined. He feels significantly improved today. He is awaiting echocardiogram. Breathing continues to be a little short after ambulating to bathroom, but otherwise has no complaints. EXAM General- well appearing, no distress, resting in bed HEENT- NCAT Resp- CTAB, no crackles in either base CV- RRR, no m/g/r Extremities- bilateral pedal edema to lower cadet Neuro- nonfocal, no lateralizing deficits Exam Const: Vital Signs, click to edit/add: Vital Signs - 24 hr 12/29/23 19:00 12/29/23 22:00 12/29/23 22:00 Temperature 97.7 F Pulse Rate 67 Pulse Rate [Pulse Oximeter] 82 66 Respiratory Rate 16 16 Blood Pressure [Le ft Arm] 114/66 Pulse Oximetry 96 Oxygen Delivery Me thod Room Air 12/29/23 22:00 12/29/23 22:00 12/30/23 02:30 Temperature 97.4 F L 97.6 F Pulse Rate Pulse Rate [Pulse Oximeter] 67 86 Respiratory Rate 16 16 16 Blood Pressure [Le ft Arm] 117/83 134/76 Pulse Oximetry 97 97 96 Oxygen Delivery Me thod Room Air Room Air Room Air 12/30/23 07:52 12/30/23 08:41 12/30/23 08:41 Temperature Pulse Rate 68 Pulse Rate [Pulse Oximeter] 84 Respiratory Rate 16 16 Blood Pressure [Le ft Arm] Pulse Oximetry 97 Oxygen Delivery Me thod Room Air 12/30/23 08:41 12/30/23 11:00 12/30/23 14:57 Temperature 97.5 F L 98.0 F Pulse Rate Pulse Rate [Pulse Oximeter] 84 70 77 Respiratory Rate 16 16 16 Blood Pressure [Le ft Arm] 114/75 125/85 115/70 Pulse Oximetry 94 98 99 Oxygen Delivery Me thod Room Air Room Air Room Air Labs Labs: Laboratory Results - last 24 hr 12/30/23 06:06 WBC 3.86 L RBC 2.92 L Hgb 10.2 L Hct 31.6 L MCV 108 H MCH 35 H MCHC 32 Plt Count 275 Sodium 139 Potassium 4.0 Chloride 109 Carbon Dioxide 23 Anion Gap 7 BUN 22 Creatinine 1.0 Estimated Creat Clear 73.59 Estimated GFR 88 Glucose 88 Calcium 8.6 Phosphorus 4.4 Magnesium 2.4 Troponin I < 0.01 L NT-Pro-B Natriuret Pep 1518
--- NOTE | 2023-12-30 19:39 | PC.NURSE ---
Nursing Care Hours: [id number] Pt this shift calm and cooperative, alert and oriented. c/o pain to L upper teeth. Visualized missing fillings, but no drainage or swollen area. Treated per eMAR. Swelling to LE, 2+ in feet up to ankles. Confirms still feeling SOB with exertion. VSS. Tele shows NSR with prolong QT. Pt showered today. Tolerating regular diet. No BM. ECHO moved from tonight to outpatient tomorrow morning after discharge.
[2023-12-30] MEDS: TRAZODONE HCL 50 MG TABLET 100 MG PO (21:04)
[2023-12-30] MEDS: oxyBUTYnin chloride 5 MG TABLET PO (21:04)
[2023-12-30] MEDS: FAMOTIDINE 20 MG TABLET PO (21:04)
[2023-12-30] MEDS: ZOLPIDEM 5 MG TABLET 10 MG PO (22:07)
[2023-12-31] MEDS: OXYCODONE 5 MG TABLET PO (00:02)
[2023-12-31 06:56] LABS: Basophils Absolute Auto 0.05 K/uL (0.00-0.30); Basophils Percent Auto 1.1 % (0.0-3.0); Eosinophils Absolute Auto 0.25 K/uL (0.00-0.50); Eosinophils Percent Auto 5.3 % (0.0-7.0); Hemoglobin* 10.7 gm/dL (13.5-17.5); Immature Granulocytes Abs Auto 0.01 K/uL (0.00-0.30); Immature Granulocytes Pct Auto 0.2 %; Lymphocytes Percent Auto 16.1 % (20-44); Mean Corpuscular HGB Conc 32 gm/dL (32-36); Mean Corpuscular Hemoglobin 35 pg (26-34); Mean Corpuscular Volume 108 fL (80-100); Monocytes Percent Auto 15.1 % (0.0-11.0); Neutrophils Absolute Auto 2.93 K/uL (1.7-7.0); Neutrophils Percent Auto 62.2 % (42.0-72.0); Platelet Count* 311 K/uL (140-440); RDW Coefficient of Variation % 14.8 % (11.5-15.5); Red Blood Count 3.05 m/uL (4.30-5.90); White Blood Count* 4.71 K/uL (4.50-11.00)
--- NOTE | 2023-12-31 06:59 | PC.NURSE ---
End of shift report [id number]: Pleasant and cooperative with cares. Pain to teeth well managed with current regimen. Denies any nausea or vomiting. Independent with ambulation.
[2023-12-31 07:07] LABS: Slide Review Reflex No
[2023-12-31 07:11] VITALS: PULSE 73
[2023-12-31 07:20] LABS: Chloride* 109 mmol/L (96-114)
[2023-12-31 07:21] LABS: Potassium* 4.3 mmol/L (3.6-5.1); Sodium* 137 mmol/L (135-149)
[2023-12-31 07:23] LABS: Est. Creatinine Clearance* 73.59; Estimated Glomerular Filt Rate 88 ml/min
[2023-12-31 07:24] LABS: Anion Gap 6 mEq/L (7-15); Blood Urea Nitrogen* 20 mg/dL (7-30); Calcium* 9.2 mg/dL (8.4-10.6); Carbon Dioxide* 22 mmol/L (20-32); Glucose* 91 mg/dL (60-115)
[2023-12-31 08:15] VITALS: BP 102/73; PULSE 76; RESP 18; TEMP 36.7; O2SAT 100; O2SAT 96
[2023-12-31] MEDS: THIAMINE 100 MG TABLET PO (08:36)
[2023-12-31] MEDS: DULOXETINE 30 MG CAPSULE DR PO (08:37)
[2023-12-31] MEDS: PROPRANOLOL 20 MG TABLET 10 MG PO (08:37)
[2023-12-31] MEDS: ACETAMINOPHEN 325 MG TABLET 650 MG PO (08:37)
[2023-12-31] MEDS: FUROSEMIDE 40 MG TABLET PO (08:38)
[2023-12-31] MEDS: buPROPion HCL SR 150 MG TAB PO (08:38)
[2023-12-31] MEDS: MULTIVITAMIN/MINERALS 1 TABLET 1 TAB PO (08:38)
[2023-12-31] MEDS: ROSUVASTATIN CALCIUM 10 MG TABLET PO (08:38)
[2023-12-31] MEDS: FOLIC ACID 1 MG TABLET PO (08:38)
--- NOTE | 2023-12-31 09:46 | P.DS_ITS ---
Documented by User: Giselle Rashid MD 12/31/23 09:51 DS: Providers Provider Date Seen: 12/31/23 Date of admission: 12/29/23 13:14 Primary care physician: Not a Local Provider Admitting Clinician: Avinash Tellez MD Consults: 12/29/23 13:37 Consult to Nutrition [CONS] Routine Comment: Reason for consult:: Miscellaneous Comment: no added salt diet/low sodium diet Attending Physician on discharge: Avinash Tellez MD Date of Discharge: 12/31/23 DS: Diagnosis Discharge Diagnosis (1) Anasarca: Status: Acute Problem details: Noted for past 3 weeks. Renal and liver function appears normal, no proteinuria. Denies chest pain. Responded well to IV lasix (down 3kg) - D/Dx: iatrogenic related to misuse of NSAIDs, re-feeding syndrome, cardiac - stop all NSAIDs, use APAP and oxycodone for pain control for now and must see dentist regarding dental pain - Continue oral lasix 40mg PRN edema - TTE ordered, pending and will be done as an outpatient. Follow up will depend on results (2) HIV positive: Status: Acute Problem details: - Follows at [facility], treated with ODEFSEY (cjqtujjybgbiv-kvlunludrjm-ikigvcglh alafenamide) (3) NSAIDs adverse reaction: Status: Acute Problem details: - suspect anasarca related to misuse of ibuprofen over last 3+ weeks to treat dental pain (4) Elevated brain natriuretic peptide (BNP) level: Status: Acute Problem details: - Continue furosemide 40 mg PO PRN for edema - transthoracic echocardiogram pending- will be done as outpatient on discharge (5) Anemia: Status: Acute Problem details: hemoglobin 9.7 on 12/29/2023, improved to 10.7 with diuresis. (6) Prolonged QT interval: Status: Acute Problem details: EKG shows long QT. Pharmacy reviewed medications and he is on a relatively high dose of trazodone. -Decreased trazodone to 100mg QHS -Repeat EKG with PCP (7) Pain, dental: Status: Acute Problem details: - has not seen dentist about this - has been misusing ibuprofen 1,000 mg po q 4-6 hours and acetaminophen 1,000 mg po q 4-6 hours for pain for past 2-3 weeks (8) Failure to thrive: Status: Acute Problem details: - Late November 2023, eventually found to have enterotoxigenic e coli diarrhea that resolved with treatment - weight was as low as 106 pounds, normal weight 135 pounds, on 12/29/23 weight was 148# at his home, with anasarca - may have developed an element of re-feeding syndrome since discharged from [facility] about 3 weeks ago. (9) NSAID long-term use: Status: Acute Problem details: - meloxicam 7.5 mg once daily discontinued, small prescription for oxycodone supplied (10) Tobacco use disorder: Status: Acute Problem details: - on-going DS: Summary Hospital Course Hospital Course: Mr. Zamora presented to the hospital on 12/29/23 with anasarca. He has no prior cardiac, liver or kidney disease. Laboratory workup was remarkable for elevated BNP at 1510. Troponin and EKG were ok, but did suggest possible septal infarct age indeterminant. He had no chest pain symptoms, but did complain of exertional dyspnea and heavy legs. He was diuresed with IV lasix followed by oral lasix and did well. Electrolytes and renal function are stable. Suspect that overuse o f NSAIDs may have contributed to the anasarca. We were unfortunately unable to obtain echocardiogram while inpatient, but he will have one just after discharge as an outpatient. He will need follow up in a short time with his PCP and also recommend cardiology referral depending on echo results. Please note that his QTc was prolonged at 508 and I recommended reducing his trazodone dose. He will need follow up EKG. He prefers to continue on the higher dose, but I defer continuation to PCP. Status at Discharge Functional status at discharge: independent ambulation Time Spent with Patient Time attestation: Total time spent providing and/or coordinating discharge services: Time spent: Greater than 30 minutes Exam Narrative: Exam Narrative: General: Well appearing, no distress HEENT: NCAT Resp: Comfortable, unlabored, no wheezing or crackles, CTAB CV: RRR, no m/g/r Extremities: Mild pedal edema Neuro: Nonfocal, no lateralizing deficits Const: Vital Signs, click to edit/add: Vital Signs - 24 hr 12/30/23 11:00 12/30/23 14:57 12/30/23 15:00 Temperature 98.0 F Pulse Rate Pulse Rate [Pulse Oximeter] 70 77 77 Respiratory Rate 16 16 16 Blood Pressure [Le ft Arm] 125/85 115/70 Pulse Oximetry 98 99 Oxygen Delivery Wi thod Room Air Room Air 12/30/23 15:00 12/30/23 15:00 12/30/23 19:00 Temperature 98.2 F Pulse Rate 74 Pulse Rate [Pulse Oximeter] 77 Respiratory Rate 16 16 Blood Pressure [Le ft Arm] 113/74 Pulse Oximetry 99 [facility] 12/30/23 22:04 12/30/23 23:00 12/30/23 23:00 Temperature Pulse Rate 76 Pulse Rate [Pulse Oximeter] 87 Respiratory Rate 18 18 Blood Pressure [Le ft Arm] Pulse Oximetry 96 [facility] 12/30/23 23:00 12/31/23 07:11 Temperature 98.2 F Pulse Rate 73 Pulse Rate [Pulse Oximeter] 87 Respiratory Rate 18 Blood Pressure [Le ft Arm] 108/65 Pulse Oximetry 96 [facility] DS: Data Data Completed and Pending Labs on day of discharge: Labs from last 24 hours 12/31/23 06:26 WBC 4.71 RBC 3.05 L Hgb 10.7 L Hct 33.0 L MCV 108 H MCH 35 H MCHC 32 RDW Coeff of Ebenezer 14.8 Plt Count 311 Neut % (Auto) 62.2 Lymph % (Auto) 16.1 L [place] % (Auto) 15.1 H Eos % (Auto) 5.3 Baso % (Auto) 1.1 Neut # (Auto) 2.93 Lymph # (Auto) 0.80 L [place] # (Auto) 0.70 Eos # (Auto) 0.25 Baso # (Auto) 0.05 Abs Immat Gran (auto) 0.01 Imm/Tot Granulo (auto) 0.2 Sodium 137 Potassium 4.3 Chloride 109 Carbon Dioxide 22 Anion Gap 6 L BUN 20 Creatinine 1.0 Estimated Creat Clear 73.59 Estimated GFR 88 Glucose 91 Calcium 9.2 Discharge Plan Discharge Disposition: Home, Self-Care Date of Admission: 12/29/23 13:14 Attending Provider on Discharge: Giselle Rashid Consulting Providers: Isabelle Brooks; Avinash Tellez; Giselle Rashid Primary Care Provider: Provider,Not a Local Condition: Improved Anticipated Discharge Date/Time: 12/31/23 08:22 Discharge Medications: New furosemide 40 mg Tablet 40 mg PO DIRECTED Qty: 30 0RF oxycodone 5 mg Tablet 5 mg PO Q8H PRN (Reason: Pain) Qty: 20 0RF trazodone 50 mg Tablet 100 mg PO HS Qty: 10 0RF Continued bupropion HCl 150 mg tablet sustained-release 12 hr 150 mg PO DAILY propranolol 10 mg tablet 10 mg PO DAILY famotidine 20 mg tablet 20 mg PO HS folic acid 1 mg tablet 1 mg PO DAILY oxybutynin chloride 5 mg tablet 5 mg PO HS rosuvastatin 10 mg tablet 10 mg PO DAILY duloxetine 30 mg capsule,delayed release(DR/EC) 30 mg PO DAILY Certavite-Antioxidant 18-400 mg-mcg tablet 1 tab PO DAILY thiamine mononitrate (vit B1) [Vitamin B-1 (mononitrate)] 100 mg tablet 100 mg PO DAILY Odefsey 200-25-25 mg tablet 1 tab PO DAILY trazodone 50 mg tablet 25 mg PO TIDWMEAL ondansetron HCl 4 mg tablet 4 mg PO Q8H PRN acetaminophen 500 mg tablet 1,250 mg PO .2-3X/DAY PRN Discontinued meloxicam 7.5 mg tablet 7.5 mg PO DAILY trazodone 100 mg tablet 200 mg PO HS ibuprofen 200 mg tablet 1,000 mg PO .2-3X/DAY PRN Discharge Orders: Discharge Order (Routine); Ordered 12/31/23 Ordered By: Giselle Rashid Patient Education: Furosemide (By mouth), Trazodone (By mouth), Oxycodone, Rapid Release (By mouth), Anemia (DC), Safe Use of NSAIDs (DC) Additional Instructions: Follow up with primary care in 1 week, review echo with them Activity Level: No Restrictions Discharge Diet: Heart Healthy (2 gm sodium, low fat) Follow Up Appointments: Provider,Not a Local [Primary Care Provider] - Forms: [facility] Info Instructions Documented by User: Linda Ansari MD 02/10/24 14:23 DS: Providers Provider Attending Physician on discharge: Edwina Rashid MD DS: Diagnosis Discharge Diagnosis (1) Anasarca: Status: Acute Problem details: Noted for past 3 weeks. Renal and liver function appears normal, no proteinuria. Denies chest pain. Responded well to IV lasix (down 3kg) - D/Dx: iatrogenic related to misuse of NSAIDs, re-feeding syndrome, cardiac - stop all NSAIDs, use APAP and oxycodone for pain control for now and must see dentist regarding dental pain - Continue oral lasix 40mg PRN edema - TTE ordered, pending and will be done as an outpatient. Follow up will depend on results (2) HIV positive: Status: Acute Problem details: - Follows at [facility], treated with ODEFSEY (rmkmliogyydmz-ulkegtbnpqo-gzudtqwxy alafenamide) (3) NSAIDs adverse reaction: Status: Acute Problem details: - suspect anasarca related to misuse of ibuprofen over last 3+ weeks to treat dental pain (4) Elevated brain natriuretic peptide (BNP) level: Status: Acute Problem details: - Continue furosemide 40 mg PO PRN for edema - transthoracic echocardiogram pending- will be done as outpatient on discharge (5) Anemia: Status: Acute Problem details: hemoglobin 9.7 on 12/29/2023, improved to 10.7 with diuresis. (6) Prolonged QT interval: Status: Acute Problem details: EKG shows long QT. Pharmacy reviewed medications and he is on a relatively high dose of trazodone. -Decreased trazodone to 100mg QHS -Repeat EKG with PCP (7) Pain, dental: Status: Acute Problem details: - has not seen dentist about this - has been misusing ibuprofen 1,000 mg po q 4-6 hours and acetaminophen 1,000 mg po q 4-6 hours for pain for past 2-3 weeks (8) Failure to thrive: Status: Acute Problem details: - Late November 2023, eventually found to have enterotoxigenic e coli diarrhea that resolved with treatment - weight was as low as 106 pounds, normal weight 135 pounds, on 12/29/23 weight was 148# at his home, with anasarca - may have developed an element of re-feeding syndrome since discharged from [facility] about 3 weeks ago. (9) NSAID long-term use: Status: Acute Problem details: - meloxicam 7.5 mg once daily discontinued, small prescription for oxycodone supplied (10) Tobacco use disorder: Status: Acute Problem details: - on-going DS: Summary Hospital Course Hospital Course: Mr. Zamora presented to the hospital on 12/29/23 with anasarca. He has no prior cardiac, liver or kidney disease. Laboratory workup was remarkable for elevated BNP at 1510. Troponin and EKG were ok, but did suggest possible septal infarct age indeterminant. He had no chest pain symptoms, but did complain of exertional dyspnea and heavy legs. He was diuresed with IV lasix followed by oral lasix and did well. Electrolytes and renal function are stable. Suspect that overuse of NSAIDs may have contributed to the anasarca. We were unfortunately unable to obtain echocardiogram while inpatient, but he will have one just after discharge as an outpatient. He will need follow up in a short time with his PCP and also recommend cardiology referral depending on echo results. Please note that his QTc was prolonged at 508 and I recommended reducing his trazodone dose. He will need follow up EKG. He prefers to continue on the higher dose, but I defer continuation to PCP. Discharge Plan Discharge Disposition: Home, Self-Care Date of Admission: 12/29/23 13:14 Attending Provider on Discharge: Giselle Rashid Consulting Providers: Isabelle Brooks; Avinash Tellez; Giselle Rashid Primary Care Provider: Provider,Not a Local Condition: Improved Anticipated Discharge Date/Time: 12/31/23 08:22 Discharge Medications: New furosemide 40 mg Tablet 40 mg PO DIRECTED Qty: 30 0RF oxycodone 5 mg Tablet 5 mg PO Q8H PRN (Reason: Pain) Qty: 20 0RF trazodone 50 mg Tablet 100 mg PO HS Qty: 10 0RF Continued bupropion HCl 150 mg tablet sustained-release 12 hr 150 mg PO DAILY propranolol 10 mg tablet 10 mg PO DAILY famotidine 20 mg tablet 20 mg PO HS folic acid 1 mg tablet 1 mg PO DAILY oxybutynin chloride 5 mg tablet 5 mg PO HS rosuvastatin 10 mg tablet 10 mg PO DAILY duloxetine 30 mg capsule,delayed release(DR/EC) 30 mg PO DAILY Certavite-Antioxidant 18-400 mg-mcg tablet 1 tab PO DAILY thiamine mononitrate (vit B1) [Vitamin B-1 (mononitrate)] 100 mg tablet 100 mg PO DAILY Odefsey 200-25-25 mg tablet 1 tab PO DAILY trazodone 50 mg tablet 25 mg PO TIDWMEAL ondansetron HCl 4 mg tablet 4 mg PO Q8H PRN acetaminophen 500 mg tablet 1,250 mg PO .2-3X/DAY PRN Discontinued meloxicam 7.5 mg tablet 7.5 mg PO DAILY trazodone 100 mg tablet 200 mg PO HS ibuprofen 200 mg tablet 1,000 mg PO .2-3X/DAY PRN Discharge Orders: Discharge Order (Routine); Ordered 12/31/23 Ordered By: Giselle Rashid Patient Education: Furosemide (By mouth), Trazodone (By mouth), Oxycodone, Rapid Release (By mouth), Anemia (DC), Safe Use of NSAIDs (DC) Additional Instructions: Follow up with primary care in 1 week, review echo with them Activity Level: No Restrictions Discharge Diet: Heart Healthy (2 gm sodium, low fat) Follow Up Appointments: Provider,Not a Local [Primary Care Provider] - Forms: [employer] Info Instructions
== END 2023-12-31 08:55 | disposition home or self-care (01) ==
LOC: ED 12:00 → MEDSURG 13:16
PROVIDERS: Family Medicine; Admitting Provider Internal Medicine; Emergency Provider Family Medicine; Visit Provider Internal Medicine
DX: R60.1 Generalized edema (principal); T39.311A Poisoning by propionic acid derivatives, accidental (unintentional), initial encounter; R94.31 Abnormal electrocardiogram [ECG] [EKG]; R06.09 Other forms of dyspnea; D64.9 Anemia, unspecified; R78.89 Finding of other specified substances, not normally found in blood; J90 Pleural effusion, not elsewhere classified; B20 Human immunodeficiency virus [HIV] disease; J98.11 Atelectasis; M79.605 Pain in left leg; M79.604 Pain in right leg; R14.0 Abdominal distension (gaseous); M25.50 Pain in unspecified joint; R06.02 Shortness of breath; F33.1 Major depressive disorder, recurrent, moderate; R10.9 Unspecified abdominal pain; K08.89 Other specified disorders of teeth and supporting structures; N50.89 Other specified disorders of the male genital organs; F17.200 Nicotine dependence, unspecified, uncomplicated; C21.1 Malignant neoplasm of anal canal; R62.7 Adult failure to thrive; Z79.899 Other long term (current) drug therapy; Z79.1 Long term (current) use of non-steroidal anti-inflammatories (NSAID); D12.6 Benign neoplasm of colon, unspecified; Z85.048 Personal history of other malignant neoplasm of rectum, rectosigmoid junction, and anus; Z87.898 Personal history of other specified conditions; Z66 Do not resuscitate
CPT/HCPCS: 36415; 71046; 74177; 80048; 80053; 81001; 81003; 82248; 83735; 83880; 84100; 84443; 84484; 85025; 85027; 86140; 93005; 94761; 96374; 99285; G0378; A9153; A9270; J1940; Q9967; S0106

== ENCOUNTER 2023-12-31 09:00 | Outpatient (CLI) | payer OTHER, SELFPAY | END 2023-12-31 09:01 | disposition home or self-care (01) | LOC: RAD 09:01 | PROVIDERS: Visit Provider Family Medicine | DX: R60.1 Generalized edema (principal) | CPT/HCPCS: 93306 ==

== ENCOUNTER 2024-10-06 17:02 | Inpatient (IN) | payer OTHER, SELFPAY ==
--- OUTSIDE RECORDS SUMMARY | 2015-06-19 10:08 | XMS_ITS | Continuity of Care Document ---
Author Organization [facility] Address [address] [address] [place] [address] Phone Care Team Providers Care Broadband Engineer Name Role Phone Link Lucio CHUN Unavailable Unavailable Advance Directives Directive Yes / No Effective Date File Name No Information Encounters Encounter Description Practice Location Reason(s) For Visit Diagnoses Date Provider Providers Copied on Encounter [facility], [address] [address], [place], [place], [id number], [place] tel:[phone] [facility] No Information 6 Link MD Valdes. [address] [facility], [facility] [address], [place], [place], [id number] , [place]. tel:[phone] Referring Provider: Angelica [place] , [address] [place], [address]. tel:[phone] Family History Family Member Type Diagnosis Age At Onset No Information Payers Payer name Insurance type Covered democrat ID Authoriza tion(s) No Information Social History Type Description Quantity Date Captured Comments Sex Male Smoking Status No Information Chief Complaint And Reason For Visit No Information Reason For Referral Reason For Referral No Information History Of Present Illness Encounter Date Complaint History Of Prese nt Illness No Information Functional Status Date Functional Assessmen t No Information Instructions Date Instruction Additional Infor mation No Information Assessments Type Assessment Date No Information Patient Care Teams Name Effective Dates (start - stop) Status Members No Information
--- OUTSIDE RECORDS SUMMARY | 2015-06-19 10:08 | XMS_ITS | Continuity of Care Document ---
Author Organization [facility] Address [address] [address] [place] [address] Phone Care Team Providers Care Low Pressure Boiler Tender Name Role Phone Link Lucio CHUN Unavailable Unavailable Advance Directives Directive Yes / No Effective Date File Name No Information Encounters Encounter Description Practice Location Reason(s) For Visit Diagnoses Date Provider Providers Copied on Encounter [facility], [address] [address], [place], [place], [id number], [place] tel:[phone] [facility] No Information 6 Link MD Valdes. [address] [facility], [facility] [address], [place], [place], [id number] , [place]. tel:[phone] Referring Provider: Angelica Solis NP , [address] [place], [address]. tel:[phone] Family History Family Member Type Diagnosis Age At Onset No Information Payers Payer name Insurance type Covered constitution party ID Authoriza tion(s) No Information Social History [...]
[2024-10-06] VITALS (8 sets, daily range): BP systolic 85–142; BP diastolic 64–100; PULSE 65–87; RESP 16–19; TEMP 36.7–36.9; O2SAT 93–96; BMI 20.1
--- OUTSIDE RECORDS SUMMARY | 2024-10-06 17:04 | XMS_ITS | Encounter Summary ---
Author Organization [facility] Address [address] [place] [address] Care Team Providers Care Collet Gluer Name Role Phone Franky Cullen DO Primary Care Provider Eliana De Souza MD Primary Care Provider [phone] Encounter Details Date Type Department Care Team (Late st Contact Info) Description 02/20/2016 Records - [facility] CONVERSION Scan, Non-Provider Social History Tobacco Use Types Packs/Day Years Used Date Smoking Tobacco: Every Day Cigarettes 0.5 20 Smokeless Tobacco: Never Alcohol Use Standard Drinks/Week Comments Yes 208.3 ([address] ink = 0.6 oz pure alcohol) Everyday drinker: 1 pint of scotch + 6 pack beer Sex and Gender Information Value Date Recorded Sex Assigned at Not on file Legal Sex Male 5:10 AM [employer] INTER[employer] Gender Identity Not on file Sexual Orientation Not on file documented as of this encounter Plan of Treatment Not on file documented as of this encounter Visit Diagnoses Not on filedocumented in this encounter Care Teams Collet Gluer Relationship Specialty Start Date End Date Franky Cullen DO PCP - General Internal Medicine 05/09/14 07/06/18 Eliana De Suoza MD PCP - General Student in organized health care education/training program 07/07/18 02/26/22 documented as of this encounter
--- OUTSIDE RECORDS SUMMARY | 2024-10-06 17:04 | XMS_ITS | Clinical Summary ---
Author Organization [place] Address [address] [place] [id number] Care Team Providers Care Manager Market Name Role Phone Unavailable Primary Care Provider Unavailabl e Allergies No known active allergies Medications * This document contains information received from the source organization and may not represent a complete record from that organization. hydrOXYzine (ATARAX) 25 MG tabletIndications:Al cohol dependence, continuous drinking behavior (H) Take 1 tablet (25 mg) by mouth every 8 hours as needed for anxiety 120 tablet 8 Active oxybutynin (DITROPAN) 5 MG tablet Take 1 tablet (5 mg) by mouth At Bedtime 9 Active traZODone (DESYREL) 150 MG tabletIndications:Mi ld major depression Take 1 tablet (150 mg) by mouth At Bedtime 60 tablet 1 9 Active efavirenz-emtrictabi ne-tenofovir (ATRIPLA) 600-200-300 MG per tabletIndications:As ymptomatic human immunodeficiency virus (HIV) infection status (H) Take 1 tablet by mouth At Bedtime 30 tablet 1 9 Active propranolol (INDERAL) 20 MG tabletIndications:Al cohol withdrawal syndrome without complication (H) Take 1 tablet (20 mg) by mouth 2 times daily 60 tablet 1 9 Active buPROPion (WELLBUTRIN SR) 150 MG 12 hr tabletIndications:Al cohol withdrawal syndrome without complication (H) Take 1 tablet (150 mg) by mouth 2 times daily 60 tablet 1 9 Active calcium polycarbophil (FIBERCON) 625 MG tablet Take 3 tablets by mouth 2 times daily Active folic acid (FOLVITE) 1 MG tabletIndications:Al cohol dependence with unspecified alcohol-induced disorder (H) Take 5 tablets (5 mg) by mouth daily 450 tablet 1 1 Active multivitamin w/minerals (THERA-VIT-M) tabletIndications:Al cohol dependence with unspecified alcohol-induced disorder (H) Take 1 tablet by mouth daily 90 tablet 1 1 Active naltrexone (DEPADE/REVIA) 50 MG tabletIndications:Al cohol dependence with unspecified alcohol-induced disorder (H) Take 1 tablet (50 mg) by mouth daily 90 tablet 1 1 Active nicotine (NICODERM CQ) 21 MG/24HR 24 hr patchIndications:Luciano otine dependence, uncomplicated, unspecified nicotine product type Place 1 patch onto the skin daily 28 patch 2 1 Active thiamine (B-1) 100 MG tabletIndications:Al cohol dependence with unspecified alcohol-induced disorder (H) Take 1 tablet (100 mg) by mouth daily 90 tablet 1 1 Active vortioxetine (TRINTELLIX) 10 MG tablet Take 1 tablet by mouth daily 2 Active rosuvastatin (CRESTOR) 10 MG tablet Take 1 tablet by mouth At Bedtime 2 Active famotidine (PEPCID) 20 MG tablet Take 1 tablet by mouth At Bedtime 1 Active Active Problems Problem Noted Date Diagnosed Date Alcohol abuse 05/30/2020 Alcohol dependence with unsp ecified alcohol-induced disorder 05/30/2020 Alcohol withdrawal 10/20/2017 Thrombocytopenia 05/10/2014 Mild major depression 07/08/2011 Erectile dysfunction 04/08/2011 Anxiety Immunizations Immunization Administration Dates Next Due Influenza (IIV3) PF 04/07/2010 Influenza Vaccine >6 months,quad, PF 05/11/2014 Pneumococcal 23 valent 04/07/2010 TDAP Vaccine (Adacel) 03/18/2010 Family History Medical History Relation Comments Circulatory Father MSTTR, prothromb in coagulopathy Hypertension Father Parkinsonism Father Breast Cancer Mother Cancer Mother breast at 60 yo Cerebrovascular Disease Mother Diabetes Mother Hypertension Mother Circulatory Sister coagulopathy gen es, but no DVT or PE Relation Status Comments Father Mother Sister Social History Tobacco Use Types Packs/Day Years Used Date Smoking Tobacco: Every Day Cigarettes 0.5 20 Smokeless Tobacco: Never Tobacco Cessation:Ready to Q uit: Not Asked; Counseling Given: Not Answered Alcohol Use Standard Drinks/Week Comments Yes 208.3 (1 standard drink = 0.6 oz pure alcohol) Adolescent Education Answer Date Record ed Getting School Help Needed Not on file 01/30 Sex and Gender Information Value Date Recorded Sex Assigned at Not on file Legal Sex Male 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 Gender Identity Not on file Sexual Orientation Not on file Last Filed Vital Signs Vital Sign Reading Time Taken Comments Blood Pressure 115/77 02/27/2022 4:30 PM CDT Pulse 61 02/27/2022 4:30 PM CDT Temperature 37 C (98.6 F) 02/27/2022 4:30 PM CDT Respiratory Rate 18 02/27/2022 4:30 PM CDT Oxygen Saturation 97% 02/27/2022 4:30 PM CDT Inhaled Oxygen Concentration - - Weight 57.4 kg (126 lb 8 oz) 02/27/2022 1:05 PM CDT Height 175.3 cm (5' 9) 02/27/2022 1:05 PM CDT Body Mass Index 18.68 02/27/2022 1:05 PM CDT Plan of Treatment Health Maintenance Due Date Last Done Comments ADVANCE CARE PLANNING 1965 ANNUAL REVIEW OF HM ORDERS 1967 CT COLONOGRAPHY 1967 DEPRESSION ACTION PLAN 1967 FIT 1965 FLEX SIG 1965 PHQ-9 1965 sDNA (Cologuard) 1965 HEPATITIS B VACCINE (2 of 3 - 19+ 3-dose series) 05/08/2015 04/10/2015, 09/04/2014 YEARLY PREVENTIVE VISIT 09/05/2015 09/05/19 15, 09/04/2014, 04/08/2011 LUNG CANCER SCREENING 2017 06/21/2015 LIPID 10/21/2018 10/21/2017, 05/08/2014, 02/27/2013, Additional history exists PNEUMOCOCCAL VACCINE 50+ YEARS (3 of 3 - PCV20 or PCV21) 11/30/2022 11/30/2017, 04/10/2015, 04/07/2010 COVID-19 VACCINE ( season) 2024 05/08/2021, 09/10/2020, 07/29/2020, Additional history exists INFLUENZA VACCINE (Season Ended) 2025 05/08/2021, 02/27/2020, 02/27/2020, Additional history exists DIABETES SCREENING 02/27/2025 02/27/2022, 0 05/30/2020, 07/10/2018, Additional history exists DTAP/TDAP/TD VACCINE (3 - Td or Tdap) 12/26/2030 12/26/2020, 03/18/2010, 10/02/2003, Additional history exists COLONOSCOPY 01/23/2032 01/22/2022 COLORECTAL CANCER SCREENING 01/23/2032 HEPATITIS C SCREENING Completed 09/04/2014, 010 HEPATITIS A VACCINE Completed 05/04/2017, 7 MENINGITIS VACCINE Aged Out 09/22/2018 No longer eligible based on patient's age to complete this topic ZOSTER VACCINE Completed 02/27/2020, 11/24/2018 HIV SCREENING Completed 05/08/2021, 10/2018, 11/30/2017, Additional history exists HPV VACCINE Aged Out No longer eligi ble based on patient's age to complete this topic Procedures Procedure Name Priority Date/Time Associated Diagnosis Comments COMPREHENSIVE METABOLIC PANEL STAT 02/27/2022 2:52 PM CDT HIV-1 RNA QUANTITATIVE Routine 07/07/2018 12:26 PM ROVING CARRIER Acute alcoholic intoxication in alcoholism without complication (H) LIPID PROFILE Routine 10/21/2017 7:51 AM CDT Alcohol dependence, continuous drinking behavior (H) CT CHEST/ABDOMEN/PELVIS W CONTRAST Routine 06/21/2015 9:47 AM ROVING CARRIER Upper abdominal pain HEPATITIS C ANTIBODY Routine 09/04/2014 9:24 AM CDT from Last 3 Months or Most Recently Relevant to Health Maintenance Results * (ABNORMAL) Comprehensive metabolic panel (02/27/2022 2:52 PM CDT) Sodium 125(L) 133 - 144 mmol/L 02/27/2022 4:59 PM CDT [facility] Potassium 2.9(L) 3.4 - 5.3 mmol/L 02/27/2022 4:59 PM CDT [facility] Chloride 88(L) 94 - 109 mmol/L 02/27/2022 4:59 PM CDT [facility] Carbon Dioxide (CO2) 20 20 - 32 mmol/L 02/27/2022 4:59 PM CDT [facility] Anion Gap 17(H) 3 - 14 mmol/L 02/27/2022 4:59 PM CDT [facility] Urea Nitrogen 50(H) 7 - 30 mg/dL 02/27/2022 4:59 PM CDT [facility] Creatinine 2.36(H) 0.66 - 1.25 mg/dL 02/27/2022 4:59 PM CDT [facility] Calcium 8.6 8.5 - 10.1 mg/dL 02/27/2022 4:59 PM CDT [facility] Glucose 95 70 - 99 mg/dL 02/27/2022 4:59 PM CDT [facility] Alkaline Phosphatase 81 40 - 150 U/L 02/27/2022 4:59 PM CDT [facility] AST 116(H) 0 - 45 U/L 02/27/2022 4:59 PM CDT [facility] ALT 53 0 - 70 U/L 02/27/2022 4:59 PM CDT [facility] Protein Total 7.5 6.8 - 8.8 g/dL 02/27/2022 4:59 PM CDT [facility] Albumin 3.8 3.4 - 5.0 g/dL 02/27/2022 4:59 PM CDT [facility] Bilirubin Total 0.6 0.2 - 1.3 mg/dL 02/27/2022 4:59 PM CDT [facility] GFR Estimate 32(L) >60 mL/min/1.7 3m2 02/27/2022 4:59 PM CDT [facility] Comment:Effective April 032020 eGFRcr in adults is calculated using the 2020 CKD-EPI creatinine equation which includes age and gender (Dread et al., NEJM, DOI: 10.1056/OVADoi5902761) Blood STRUCTURE OF RIGHT HAND / Unknown Venipuncture / Unknown 02/27/2022 2:52 PM CDT 02/27/2022 2:55 PM CDT us Conner Armstrong DO LAB - BLOOD ORDERABLE S Final Result [facility] [address] [facility] [place] [id number] [phone] * HIV-1 RNA quantitative (07/07/2018 12:26 PM ROVING CARRIER) HIV-1 RNA Quant Result HIV-1 RNA Not Detected HIVND^HIV-1 RNA Not Detected {Copies}/mL 07/08/2018 1:20 PM ROVING CARRIER [facility] Comment: The HU AmpliPrep/HU TaqMan HIV-1 test is an FDA-approved in vitro nucleic acid amplification test for the quantitation of HIV-1 RNA in human plasma (EDTA plasma) using the HU AmpliPrep instrument for automated viral nucleic acid extraction and the HU TaqMan Analyzer or PixelPin TaqMan for automated Real Time PCR amplification and detection of the viral nucleic acid target. Titer results are reported in copies/ml. This assay is intended for use in conjunction with clinical presentation and other laboratory markers of disease prognosis and for use as an aid in assessing viral response to antiretroviral treatment as measured by changes in plasma HIV-1 RNA levels. This test should not be used as a donor screening test to confirm the presence of HIV-1 infection. HIV RNA QT Log Not Calculated <1.3 {Log_copies }/mL 07/08/2018 1:20 PM ROVING CARRIER [facility] 07/07/2018 12:2 6 PM ROVING CARRIER 07/07/2018 12:41 PM ROVING CARRIER us Kirk Ansari MD LAB - BLOOD ORDERABLE S Final Result [facility] [address] [place], [place] [id number] [place] [address] * (ABNORMAL) Lipid panel (10/21/2017 7:51 AM CDT) Cholesterol 232(H) <200 mg/dL 10/21/2017 8:15 AM CDT [facility] Comment:Desirable: <200 mg/d l Triglycerides 65 <150 mg/dL 10/21/2017 8:15 AM CDT [facility] HDL Cholesterol 126 >39 mg/dL 8 8:24 AM CDT [facility] LDL Cholesterol Calculated 93 <100 mg/dL 10/21/2017 8:24 AM CDT [facility] Comment:Desirable: <100 mg/d l Non HDL Cholesterol 106 <130 mg/dL 10/21/2017 8:24 AM CDT [facility] Blood specimen (specimen) 10/21/2017 7:51 AM CDT 10/21/2017 7:53 AM CDT us Vandana Roberts BICYCLE II ASSEMBLER PRODUCTION HELPER LAB - BLOOD ORDERABLE S Final Result Performing Organization Address City/State/[facility] Co de Phone Number [facility] [address] [place] [address] * CT Chest/Abdomen/Pelvis w Contrast (06/21/2015 9:47 AM ROVING CARRIER) Anatomical Region Laterality Modality Abdomen/Pelvis, Chest, SUBRA D CT BODY, UMP CT CHEST, UMP CT ABDOMEN PELVIS, RAD CT Computed Tomography Impressions 06/21/2015 10:29 AM ROVING CARRIER CONCLUSION: 1. No specific finding to explain the patient's upper abdominal pain. 2. Indeterminant 2 x 1 cm left adrenal nodule. Suggest follow-up adrenal protocol CT or MRI. 3. Mild apparent rectal wall thickening may indicate a proctitis. Narrative 06/21/2015 10:[address] CHEST, ABDOMEN, AND PELVIS 06/21/2015 9:47 AM INDICATION: Epigastric pain with vomiting and loss of appetite TECHNIQUE: CT chest, abdomen, and pelvis. Dose reduction techniques were used. IV CONTRAST: Iohexol (Omni) 100 mL COMPARISON: None. FINDINGS: CHEST: Mild apical emphysema. The lungs are otherwise clear. No pleural effusion. No thoracic lymphadenopathy. ABDOMEN: Normal liver, spleen, pancreas, gallbladder, right adrenal gland, and kidneys. 2 x 1 cm left adrenal nodule measures 50 Hounsfield units. PELVIS: Mild wall thickening of the rectum with slightly engorged adjacent veins. MUSCULOSKELETAL: Negative. Procedure Note Nick Burroughs MD - 10/06/2020 CT CHEST, ABDOMEN, AND PELVIS 06/21/2015 9:47 AM INDICATION: Epigastric pain with vomiting and loss of appetite TECHNIQUE: CT chest, abdomen, and pelvis. Dose reduction techniques wereused. IV CONTRAST: Iohexol (Omni) 100 mL COMPARISON: None. FINDINGS: CHEST: Mild apical emphysema. The lungs are otherwise clear. No pleuraleffusion. No thoracic lymphadenopathy. ABDOMEN: Normal liver, spleen, pancreas, gallbladder, right adrenal gland,and kidneys. 2 x 1 cm left adrenal nodule measures 50 Hounsfield units. PELVIS: Mild wall thickening of the rectum with slightly engorged adjacentveins. MUSCULOSKELETAL: Negative. IMPRESSION: CONCLUSION: 1. No specific finding to explain the patient's upper abdominal pain. 2. Indeterminant 2 x 1 cm left adrenal nodule. Suggest follow-up adrenalprotocol CT or MRI. 3. Mild apparent rectal wall thickening may indicate a proctitis. Angelica Solis BICYCLE II ASSEMBLER RUBBER SPLICER IMG CT ORDERABLES Final Result * Hepatitis C antibody (09/04/2014 9:24 AM CDT) Hepatitis C Antibody Negative Negative 09/05/2014 8:34 AM CDT Blood specimen (specimen) Venipuncture / Unknown 09/04/2014 9:24 AM CDT 09/04/2014 4:41 PM CDT Franky Mcdaniel DO LAB - BLOOD ORDERABLES Final Result from Last 3 Months or Most Recently Relevant to Health Maintenance Insurance * Guarantor: Edmar Zamora Account Type Relation to Patient Date of Phone Billing Address Personal/Family Self 1965 [id number] [place] [address] [place] [id number] [place] [id number] Advance Directives For more information, please contact: [phone] * Full Code (Latest Code Status on File) Date Activated Date Inactivated Comments 05/30/2020 6:28 PM 06/03/2020 5:08 PM All basic and advanced life-sustaining interventions are performed as appropriate Question Answer Comments Code status determined by: Discussion with patie nt/ legal decision maker * Full Code Date Activated Date Inactivated Comments 07/07/2018 7:33 PM 07/12/2018 8:48 PM Question Answer Comments Code status determined by: Discussion with patie nt/legal decision maker * Full Code Date Activated Date Inactivated Comments 10/20/2017 6:18 PM 10/25/2017 3:30 PM * Full Code Date Activated Date Inactivated Comments 05/12/2014 8:31 PM 10/20/2017 6:18 PM * Full Code Date Activated Date Inactivated Comments 05/10/2014 2:24 AM 05/12/2014 8:31 PM
--- OUTSIDE RECORDS SUMMARY | 2024-10-06 17:04 | XMS_ITS | Encounter Summary ---
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
--- OUTSIDE RECORDS SUMMARY | 2024-10-06 17:04 | XMS_ITS | Encounter Summary ---
Author Organization [place] Address [address] [place] [address] Care Team Providers Care Auto Mechanics Teacher Name Role Phone Eliana De Souza MD Primary Care Provider [phone] Reason for Visit * Reason Onset Date Comments Refill Request 11/26/2020 Encounter Details Date Type Department Care Team (Late st Contact Info) Description 11/26/[address] [phone] Eliana De Souza MD [address] [place] [id number] Refill Request Social History Tobacco Use Types Packs/Day Years Used Date Smoking Tobacco: Every Day Cigarettes 0.5 20 Smokeless Tobacco: Never Alcohol Use Standard Drinks/Week Comments Yes 208.3 (1 standard drink = 0.6 oz pure alcohol) last drink was 0900 today Sex and Gender Information Value Date Recorded Sex Assigned at Not on file Legal Sex Male 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
--- OUTSIDE RECORDS SUMMARY | 2024-10-06 17:04 | XMS_ITS | Clinical Summary ---
Author Organization [facility] Address [address] [place] [id number] Care Team Providers Care Body Corporate Manager Name Role Phone Caden Loyd MD Primary Care Prov ider Allergies No known active allergies Medications TRAZODONE 100 MG TAB take 1 tablet (100mg) by oral route 2 times per day after meals 0 Active ATRIPLA 600-200-300 mg tabletIndications:HI V (human immunodeficiency virus infection) (HC) TAKE ONE TABLET BY MOUTH EVERY NIGHT AT BEDTIME 90 tablet 3 6 Active buPROPion (WELLBUTRIN SR) 150 mg Sustained-Release tablet Take 150 mg by mouth. 9 Active citalopram (CELEXA) 40 mg tablet TAKE ONE TABLET BY MOUTH ONCE DAILY 9 Active hydrOXYzine HCl (ATARAX) 25 mg tablet Take 25 mg by mouth. 8 Active propranolol (INDERAL) 20 mg tablet TAKE ONE TABLET BY MOUTH TWICE A DAY 9 Active oxybutynin (DITROPAN) 5 mg tablet Take 5 mg by mouth. 8 Active famotidine (PEPCID) 20 mg tablet Take 1 Tablet by mouth at bedtime. 1 Active folic acid 1 mg tablet SMARTSI Tablet(s) By Mouth 4-5 Times Daily PRN 1 Active naltrexone (REVIA) 50 mg tablet Take 1 Tablet by mouth once daily. 1 Active rosuvastatin (CRESTOR) 10 mg tablet Take 1 Tablet by mouth once daily. 2 Active vortioxetine (TRINTELLIX) 10 mg tablet Take 1 Tablet by mouth once daily. 2 Active Active Problems Problem Noted Date Diagnosed Date Alcohol dependence with unsp ecified alcohol-induced disorder 05/30/2020 Anxiety 09/22/2018 Tubular adenoma 06/07/2017 Overview (09/22/2018): Last Assessment & Plan: Noted on colonoscopy 04/07/17 Will need repeat colonoscopy in 5 y. Will be getting flex sig frequently with followup of anal SCCa. ETOH abuse 05/14/2017 Overview (09/22/2018): Last Assessment & Plan: Reports quitting on his own 3 weeks ago. Cancer of anal canal 04/23/2017 Overview (09/22/2018): Last Assessment & Plan: Typically these are treated with chemoradiation even for early stage lesion because it is curative and allows for preservation of the anal sphincter. Per Dr. Chou's note, he has a T2 lesion and no clear lymph node involvement so possible Stage IIA disease. He did have a CT c/a/p without clear metastatic disease but a questionable left adrenal nodule. MRI showed benign L adrenal nodule. Treatment is typically with infusional FU 1000 mg/m2 on days 1-4 and days 29-32 plus mitomycin 10 mg/m2 on days 1 and 29, with concurrent radiation (J Clin Oncol. 1996;14(9):2527). With the chemoradiation, local failure rates are 14-37%, 5 year overall survival rates 72-89%, and 5 year colostomy free rates are 70-86%, which is why chemoradiation is the standard of care for these cancers. Completed planned chemotherapy 06/11/17, radiation completed 06/22/17. Treatment response is typically assessed clinically 8-12 weeks after completion of chemoradiotherapy per NCCN guidelines. Will schedule Mr. Chou follow up for August 2017 and cancel the July follow up. He should see Dr. Arredondo in Radiation as scheduled. Will refill his pain medications today but would defer future refills to Radiation since this is radiation-related pain. Moderate recurrent major depression 04/05/2017 Overview (09/22/2018): Created by Conversion Last Assessment & Plan: Mood is improved today. HIV (human immunodeficiency virus infection) Depression 06/01/2016 Tobacco abuse 04/10/2015 Overview (09/22/2018): Last Assessment & Plan: Current smoker. Not addressed today. Thrombocytopenia 05/10/2014 Erectile dysfunction 04/08/2011 Chronic diarrhea Immunizations Immunization Administration Dates Next Due Hepatitis A (Adult) 05/04/2017,10/27/2016 Hepatitis B (Adult) 04/10/2015 Hepatitis B (Peds) 09/04/2014 Influenza Virus, Unspecified 01/20/2018,03/23/20 17,05/11/2014 Influenza, IIV3 (Age 6-35 mos) 01/20/2018,2016 Influenza, IIV3 (Age >=3 years) 04/07/2010 Influenza, IIV4 04/10/2015,02/27/2013 MENINGOCOCCAL VACCINE 2 VIAL 2MO-55YO (MENVEO) 09/22/2018 Pneumococcal Poly,23-Valent (Pneumovax) 12/01/19 18,04/07/2010 Pneumococcal conj 13-Valent (Prevnar 13) 015 Td (Age >=7 Years) 10/02/2003,09/14/1994 Tdap 03/18/2010 Family History Medical History Relation Name Comments Good Health Brother 1 Good Health Brother 2 Cancer-breast Mother Diabetes Mother Good Health Sister Relation Name Status Comments Brother 1 Alive Brother 2 Alive Father Alive parkisons Mother Sister Alive Social History Tobacco Use Types Packs/Day Years Used Date Smoking Tobacco: Every Day Cigarettes Passive Smoke Exposure: Current Smokeless Tobacco: Never Tobacco Cessation:Ready to Q uit: Not Asked; Counseling Given: Not Answered Comments:1 pack will last 2 days Alcohol Use Standard Drinks/Week Comments Not Currently 0 (1 standard drink = 0.6 oz pur e alcohol) rarely PHQ-2 Answer Date Recorded PHQ-2 Score 1 09/22/2018 Social Connections Answer Date Recorded Do you often feel lonely or isolated from those around you? 0 01/19/2024 Financial Resource Strain Answer Date R ecorded Difficulty of Paying Living Expenses 3 06/03/2024 Difficulty of Paying Living Expenses Not on file 06/03/2024 Food Insecurity Answer Date Recorded Do you worry your food will run out before you are able to buy more? 1 01/19/2024 Transportation Needs Answer Date Record ed Does lack of transportation keep you from medica l appointments? 1 01/19/2024 Does lack of transportation keep you from work, meetings or getting things that you need? 1 01/19/2024 Housing Stability Answer Date Recorded What is your housing situation today? 1 01/19/2024 Utilities Answer Date Recorded Do you have trouble paying f or utilities (for example, heat, electricity, water, phone)? 1 01/19/2024 Sex and Gender Information Value Date Recorded Sex Assigned at Not on file Legal Sex Male 7:12 AM [employer] Gender Identity Not on file Sexual Orientation Not on file Obstetrics History Last Filed Vital Signs Vital Sign Reading Time Taken Comments Blood Pressure 99/63 01/19/2024 8:16 AM CDT MAP - 76 Pulse 79 01/19/2024 8:16 AM CDT Temperature 36.4 C (97.6 F) 01/19/2024 8:16 AM CDT Respiratory Rate 16 01/19/2024 8:16 AM CDT Oxygen Saturation 97% 01/19/2024 8:16 AM CDT Inhaled Oxygen Concentration - - Weight 65.4 kg (144 lb 1.6 oz) 01/19/2024 8:16 A M CDT Height 175.3 cm (5' 9) 01/22/2022 11:36 AM CDT Body Mass Index 21.28 01/22/2022 11:36 AM CDT Plan of Treatment Health Maintenance Due Date Last Done Comments HIV for age 15-65 1982 Hepatitis C screening for ag e 18-79 1985 Lipids for age 45-75 02/04/2012 Hepatitis B series for 19+ ( 2 of 3 - 19+ 3-dose series) 05/08/2015 04/10/2015, 09/04/2014 Zoster (shingles) series for age 50+ (1 of 2) 2017 Depression screening for age 12+ 09/23/2019 09/23/19 19 Tetanus booster 03/18/2020 03/18/2010, 06/0 05/2003, 09/14/1994 Pneumococcal series for age 50+ (3 of 3 - PCV20 or PCV21) 11/30/2022 11/30/2017, 04/10/2015, 04/07/2010 BMI (ht and wt on same day) for age 18+ 01/14/2023 01/14/2022, 09/22/2018 COVID-19 vaccine series ( season) 2024 08/24/2022, 05/08/2021, 09/10/2020, Additional history exists Influenza Vaccine (Season Ended) 2025 01/20/2018, 01/20/2018, 03/23/2017, Additional history exists Colonoscopy through age 75 01/23/2032 01/22/2022 Tdap Completed 03/18/2010 Procedures Procedure Name Priority Date/Time Associated Diagnosis Comments COLONOSCOPY 01/22/2022 11:12 AM CDT from Last 3 Months or Most Recently Relevant to Health Maintenance Results * COLONOSCOPY (01/22/2022 11:12 AM CDT) 01/22/2022 11:1 2 AM CDT Narrative Transcriptions Robert Irene MD - 01/22/2022 12:45 PM CDT Endoscopy Patient Name: Edmar Zamora Procedure Date: 01/22/2022 Gender: Male Date of : 1965 Admit Type: Ambulatory Procedure: Colonoscopy Proceduralist: Robert Irene MD Indications/Pre-Op Diagnosis: Clinically significant diarrhea ofunexplained origin Medications: Monitored Anesthesia Care Procedure Description: The patient had risks, benefits and alternatives explained to andgave informed consent. The patient had a stable cardiopulmonary status and judged an adequate candidate for conscious sedation. The endoscope was passed through the anus and advanced to 4 cm intothe ileum. The colonoscopy was technically difficult and complex due to bowel stenosis. Successful completion of the procedure was aided by performing the maneuvers documented (below) in this report. Thepatient tolerated the procedure fairly well. The quality of the bowel preparation was good. The terminal ileum, ileocecal valve,appendiceal orifice, and rectum were photographed. Complications: No immediate complications. Estimated blood loss: Minimal. Estimated Blood Loss & Specimen: Estimated blood loss was minimal. Specimen collected: Yes and sent to Laboratory Findings: The perianal and digital rectal examinations were normal. Pertinent negatives include no anal lesion or abnormality. A benign-appearing, intrinsic severe stenosis measuring 3 cm (inlength) x 8 mm (inner diameter) was found in the mid rectum and was traversed after dilation. The stricture was approximately 10-13cm from the anal verge. A TTS dilator was passed through the scope. Dilation with a 10-11-12 mm colonic balloon dilator was performed. Afterwards, the colonoscope was still unable to pass through the stricture. AnotherTTS dilator was passed through the scope. Dilation with a 12-13.5-15 mm colonic balloon dilator was performed. The scope was then passedthrough the stricture. The dilation site was examined and showed moderate improvement in luminal narrowing. Estimated blood loss was minimal. A continuous area of nonbleeding ulcerated mucosa with stigmata of recent bleeding was present in the mid rectum (within the stricture). Biopsies were taken with a cold forceps for histology. Estimatedblood loss was minimal. The terminal ileum appeared normal. A 4 mm polyp was found in the sigmoid colon. The polyp was sessile.The polyp was removed with a cold snare. Resection and retrieval were complete. Estimated blood loss was minimal. Unable to retroflex due to the rectum stricture. No anal canal massor ulcer was seen. 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 Dilated. Biopsied. - Mucosal ulceration within the rectum stricture. Biopsied. - The examined portion of the ileum was normal. - One 4 mm polyp in the sigmoid colon, removed with a cold snare. Resected and retrieved. Recommendation: - Use Canasa 1000 mg suppository 1 per rectum QHS. - Await pathology results. - Repeat colonoscopy in 3 years for surveillance. - Return to my office as previously scheduled. Robert Irene MD 01/22/2022 12:45:41 PM This report has been signed electronically. Note Initiated On: 01/22/2022 11:12 AM Total Procedure Duration Time 0 hours 33 minutes 25 seconds Scope Withdrawal Time 0 hours 19 minutes 40 seconds Robert Irene MD PROCEDURE ORD Final Result from Last 3 Months or Most Recently Relevant to Health Maintenance Insurance [facility] [employer] MEDICAID [facility] Advance Directives * Full Code (Latest Code Status on File) Date Activated Date Inactivated Comments 01/22/2022 11:14 AM 01/22/2022 3:39 PM Question Answer Comments Code Status Discussion: Reviewed Preferences Care Teams Body Corporate Manager Relationship Specialty Start Date End Date Caden Loyd MD [id number] [place] [address] PCP - General 09/22/18
--- NOTE | 2024-10-06 17:55 | ED.GENADULT ---
HPI - General Adult General Chief complaint: Extremity Pain/Injury, Lower Stated complaint: pain/weakness in legs Time Seen by Provider: 10/06/24 17:55 History of Present Illness HPI narrative: Patient presents to the emergency department complaining of bilateral lower extremity pain . Patient states the pain has been going on for about 5 weeks. The patient states he falls about 5x a week for the last month. Has been having difficulty getting up due to the pain. 59-year-old man presenting to the emergency department with concern of leg weakness. He has also been experiencing lower extremity edema. Has been admitted to this facility with anasarca before looks like in December of 2023. Over the last 4 or 5 weeks he has been noting increased swelling again and weakness in his legs. He might be able to get up and walk but normally at 1 point but then the next time he starts to feel weak and his legs started shaking and he would fall down. He may have hit his head at some point in this process. More alarming is that he has also noticed some bruises in his lower extremities in areas that he does not think that he injured. I see bruising on the inside of his left lower leg a scrape on his right anterior cadet and is a large bruise on his right hip. In particular is this bruise on the inner left lower leg that seems unusual to him. No shortness of breath. No chest pain. I note his hands to be shaking. Does admit to these shaking or over the last 4 or 5 days. Both legs have generally been hurting quite a bit as well. No vomiting or diarrhea. I inquire about alcohol use and he does say that he has cut back; probably had 8 wine coolers over the last 3 days. Related Data Home Medications ?Medication ?Instructions ?Recorded ?Confirmed acetaminophen 500 mg tablet 500 mg PO Q6H PRN 12/29/23 10/07/24 bupropion HCl 150 mg tablet,12 hr 150 mg PO DAILY 12/29/23 10/06/24 sustained-release duloxetine 30 mg capsule,delayed 30 mg PO DAILY 12/29/23 10/06/24 release folic acid 1 mg tablet 1 mg PO DAILY 12/29/23 10/06/24 multivitamin-ferrous 1 tab PO DAILY 12/29/23 10/06/24 fumarate-folic acid 18 mg-400 mcg tablet (Certavite-Antioxidant) oxybutynin chloride 5 mg tablet 5 mg PO HS 12/29/23 10/06/24 propranolol 10 mg tablet 10 mg PO DAILY 12/29/23 10/06/24 rosuvastatin 10 mg tablet 10 mg PO DAILY 12/29/23 10/06/24 bictegravir 50 mg-emtricitabine 1 tab PO DAILY 10/06/24 10/06/24 200 mg-tenofovir alafenam 25 mg tablet (Biktarvy) trazodone 100 mg tablet 200 mg PO HS 10/07/24 10/07/24 Previous Rx's ?Medication ?Instructions ?Recorded gabapentin 300 mg capsule 300 mg PO TID #90 caps 10/09/24 spironolactone 25 mg tablet 25 mg PO DAILY #30 tabs 10/09/24 Allergies Allergy/AdvReac Type Severity Reaction Status Date / Time No Known Drug Allergies Allergy Verified 10/06/24 17:20 Review of Systems Status of ROS: Reports: 6 or more systems reviewed and unremarkable except as noted in History and below [facility] Medical History (Updated 10/09/24 @ 11:57 by Jose Little MD) Hypotension ?I95.9 - Hypotension, unspecified (ICD-10) Macrocytic anemia ?D53.9 - Nutritional anemia, unspecified (ICD-10) Alcoholic hepatitis ?K70.10 - Alcoholic hepatitis without ascites (ICD-10) Diarrhea ?R19.7 - Diarrhea, unspecified (ICD-10) Tremor ?R25.1 - Tremor, unspecified (ICD-10) Ataxia ?R27.0 - Ataxia, unspecified (ICD-10) Alcohol withdrawal seizure ?F10.939 - Alcohol use, unspecified with withdrawal, unspecified (ICD-10) ?R56.9 - Unspecified convulsions (ICD-10) Elevated brain natriuretic peptide (BNP) level ?R79.89 - Other specified abnormal findings of blood chemistry (ICD-10) Anemia ?D64.9 - Anemia, unspecified (ICD-10) Prolonged QT interval ?R94.31 - Abnormal electrocardiogram [ECG] [EKG] (ICD-10) Pain, dental ?K08.89 - Other specified disorders of teeth and supporting structures (ICD-10) NSAIDs adverse reaction ?T39.395A - Adverse effect of other nonsteroidal anti-inflammatory drugs [NSAID], initial encounter (ICD-10) Anxiety ?F41.9 - Anxiety disorder, unspecified (ICD-10) Thrombocytopenia (05/10/14) ?D69.6 - Thrombocytopenia, unspecified (ICD-10) NSAID long-term use ?Z79.1 - [facility]CI (current) use of non-steroidal anti-inflammatories (NSAID) (ICD-10) Tubular adenoma of colon ?D12.6 - Benign neoplasm of colon, unspecified (ICD-10) History of anal cancer ?Z85.048 - Personal history of other malignant neoplasm of rectum, rectosigmoid junction, and anus (ICD-10) History of alcohol use disorder ?Z87.898 - Personal history of other specified conditions (ICD-10) Tobacco use disorder ?F17.200 - Nicotine dependence, unspecified, uncomplicated (ICD-10) Moderate recurrent major depression ?F33.1 - Major depressive disorder, recurrent, moderate (ICD-10) Failure to thrive Protein calorie malnutrition ?E46 - Unspecified protein-calorie malnutrition (ICD-10) Intestinal infection due to enterotoxigenic E. coli ?A04.1 - Enterotoxigenic Escherichia coli infection (ICD-10) HIV positive ?Z21 - Asymptomatic human immunodeficiency virus [HIV] infection status (ICD-10) Family History (Updated 10/06/24 @ 21:32 by Che Lucas MD) Mother Breast cancer Diabetes Social History (Updated 10/06/24 @ 22:09 by Che Lucas MD) Narrative: Receives medical care at [facility] [place]. DNR/DNI resuscitation. Sister, Merlyn Kerr, is his POA should that be needed, . 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 Smokes 1/2ppd. Drinks 2 drinks of vodka cranberry daily. Approx 1L vodka per week. Cut down alcohol use 3 years ago. Last drink was last night. Denies recreational drugs. What is your current living situation?: I presently have a place to live Problems where you live: no known problems Problems where you live details: None In the past 12 months, utilities in danger of being shut off: no In past 12 months, lack of transportation kept you from medical appts, meetings, work, or getting things needed for daily living: no In the past 12 mos, have been you worried that your food would run out before you had money to buy more?: never true In the past 12 mos, the food you bought just didn't last and you didn't have money to buy more?: never true Highest level of school completed/degree received: Bachelor's degree Smoking Status: Current every day smoker What tobacco products do you use: cigarettes Smoking packs per day: 0.5 Smoking cigarettes per day: 10.0 Years smoked: 30 Smoking pack-years: 15.00 Second hand tobacco smoke exposure: No How often do you have a drink containing alcohol: 4 or more times a week Alcohol type: hard liquor Alcohol type details: vodka cranberry How many standard drinks containing alcohol do you have on a typical day: 1 or 2 How often do you have six or more drinks on one occasion: Never AUDIT-C Alcohol total score: 4 Non-prescribed substance use: denies use Caffeine: No How often does anyone, including family, friends and others, physically hurt you: never How often does anyone, including family, friends and others, insult or talk down to you: never How often does anyone, including family, friends and others, threaten you with harm: never How often does anyone, including family, friends and others, scream or curse at you: never service: No Exam Narrative: Exam Narrative: Very pleasant. NAD. Breathing easily. Age cranial nerves 2-12 intact. Does have a notable tremor particularly with intention of bilateral hands. There is some light bruising on the dorsum of his left hand. Left greater than right leg with 2 to 3+ pitting edema. There is a long maybe 15 by 3 cm irregularly-shaped fresh bruise on the inner left lower leg. There is a scrape along the anterior right cadet. Very large to hand size bruise along the right greater trochanter/outer hip. Lightly tender to palpation. Lungs are clear. Heart in regular rate and rhythm. Abdomen is protuberant soft and nontender. Const: Vital Signs, click to edit/add: Vital Signs - 24 hr 10/06/24 17:13 10/06/24 20:01 10/06/24 20:10 Temperature 98.0 F Pulse Rate 72 67 Pulse Rate [Right Pulse Oximeter] 78 Respiratory Rate 18 18 17 Blood Pressure 85/65 L 93/64 Blood Pressure [Ri ght Upper Arm] 142/100 H Pulse Oximetry 96 94 95 Oxygen Delivery Me thod Room Air 10/06/24 20:31 Temperature 98.4 F Pulse Rate 65 Pulse Rate [Right Pulse Oximeter] Respiratory Rate 19 Blood Pressure 109/80 Blood Pressure [Ri ght Upper Arm] Pulse Oximetry 94 Oxygen Delivery Me thod Room Air Documenting provider has reviewed patient's vital signs: yes Course Vital Signs Vital signs: Initial Vital Signs Temperature 98.0 F 10/06/24 17:13 Temperature Source Temporal Artery Scan 10/06/24 17:13 Pulse Rate 78 10/06/24 17:13 Pulse Rhythm Regular 10/06/24 17:13 Pulse Strength 3+ Normal 10/06/24 17:13 Respiratory Rate 18 10/06/24 17:13 Blood Pressure 142/100 H 10/06/24 17:13 Blood Pressure Mean 114 H 10/06/24 17:13 Blood Pressure Position Sitting 10/06/24 17:13 Pulse Oximetry 96 10/06/24 17:13 Oxygen Delivery Method Room Air 10/06/24 17:13 Vital Signs Temperature 98.0 F 10/06/24 17:13 Pulse Rate 78 10/06/24 17:13 Respiratory Rate 18 10/06/24 17:13 Blood Pressure 142/100 H 10/06/24 17:13 Pulse Oximetry 96 10/06/24 17:13 Oxygen Delivery Method Room Air 10/06/24 17:13 Temperature 97.7 F 10/09/24 11:00 Pulse Rate 79 10/09/24 11:00 Respiratory Rate 16 10/09/24 11:00 Blood Pressure 109/80 10/09/24 11:00 Pulse Oximetry 97 10/09/24 11:00 Oxygen Delivery Method Room Air 10/09/24 11:00 Medications Administered Medications: Generic Name Dose Route Start Last Admin Trade Name Freq PRN Reason Stop Dose Admin Acetaminophen 975 mg 10/06/24 23:10 10/09/24 08:10 Acetaminophen 325 Mg Tablet PO 975 mg Q6H PRN Administration Pain Bupropion HCl 150 mg 10/07/24 09:00 10/09/24 10:15 Bupropion Hcl Sr 150 Mg Tab PO 150 mg DAILY KENNETH Administration Duloxetine HCl 30 mg 10/07/24 09:00 10/09/24 10:15 [address]oxetine [address] PO 30 mg DAILY KENNETH Administration Folic Acid 1 mg 10/07/24 09:00 10/09/24 10:15 Folic Acid 1 Mg Tablet PO 1 mg DAILY KENNETH Administration Gabapentin 300 mg 10/07/24 09:20 10/09/24 13:33 Gabapentin 300 Mg Capsule PO 300 mg TID KENNETH Administration Loperamide HCl 2 mg 10/07/24 14:36 10/08/24 09:23 Loperamide Hcl 2 Mg Capsule PO 2 mg QID PRN Administration Multivitamins/Minerals 1 tab 10/07/24 09:00 10/09/24 10:15 Multivitamin/Minerals 1 Tablet PO 1 tab DAILY KENNETH Administration Nicotine 1 patch 10/06/24 23:10 10/08/24 21:22 Nicotine 14 Mg Patch TRANSDERMA 1 patch HS KENNETH Administration Bictegrav-Emtricit- 0 tab 10/07/24 09:00 10/09/24 10:17 Tenofov Ala [ PO Not Given Biktarvy] 50-200-25 DAILY KENNETH Mg Tablet Oxybutynin Chloride 5 mg 10/06/24 23:30 10/08/24 21:21 Oxybutynin Chloride 5 Mg Tablet PO 5 mg HS KENNETH Administration Potassium Chloride 20 meq 10/08/24 08:55 10/09/24 08:10 Potassium Chloride 10 Meq Capsule Er PO 20 meq DAILYWM KENNETH Administration Propranolol HCl 10 mg 10/07/24 09:00 10/09/24 10:49 Propranolol 20 Mg Tablet PO 10 mg DAILY KENNETH Administration Sodium Chloride 5 ml 10/07/24 09:00 10/09/24 10:16 Sodium Chloride 0.9 % (Flush) 10 Ml Syringe IVF 5 ml BID KENNETH Administration Spironolactone 25 mg 10/07/24 09:00 10/09/24 10:49 Spironolactone 25 Mg Tablet PO 25 mg DAILY KENNETH Administration Trazodone HCl 50 mg 10/06/24 23:30 10/08/24 21:19 Trazodone Hcl 50 Mg Tablet PO 50 mg HS KENNETH Administration Trazodone HCl 50 mg 10/07/24 18:00 10/09/24 12:32 Trazodone Hcl 50 Mg Tablet PO 50 mg TIDWM KENNETH Administration Trazodone HCl 200 mg 10/07/24 21:00 10/08/24 21:20 Trazodone Hcl 50 Mg Tablet PO 200 mg HS KENNETH Administration Discontinued Medications Generic Name Dose Route Start Last Admin Trade Name Dane PRN Reason Stop Dose Admin Sodium Chloride 1,000 mls @ 1,000 mls/hr 10/06/24 18:18 10/06/24 19:35 0.9 % Sodium Chloride 1000 Ml IV 10/06/24 19:17 Infused .Q1H ONE Infusion Thiamine HCl 250 mg/ Sodium 102.5 mls @ 102.5 mls/hr 10/06/24 18:54 10/06/24 21:59 Chloride IVPB 10/06/24 18:55 Infused ONCE ONE Infusion Folic Acid 1 mg/ Sodium 50.2 mls @ 100.4 mls/hr 10/06/24 18:55 10/06/24 20:30 Chloride IVPB 10/06/24 18:56 Infused ONCE ONE Infusion Dextrose/Lactated Ringer's 1,000 mls @ 125 mls/hr 10/06/24 19:22 10/06/24 23:17 5 % Dextrose In Lac Ringer's IV 10/07/24 03:21 75 mls/hr .Q8H ONE Infusion Potassium Chloride 10 meq in 100 mls @ 100 mls/hr 10/06/24 19:23 10/06/24 21:13 Potassium Chloride IVPB 10/06/24 20:22 Infused ONCE ONE Infusion Dextrose/Lactated Ringer's 1,000 mls @ 75 mls/hr 10/06/24 22:40 10/07/24 00:26 5 % Dextrose In Lac Ringer's IV 10/07/24 08:41 Not Given .[id number] ONE Potassium Chloride 10 meq in 100 mls @ 100 mls/hr 10/07/24 00:45 10/07/24 04:37 Potassium Chloride IVPB 10/07/24 04:44 Infused Q90M KENNETH Infusion Lorazepam 1 - 4 mg 10/06/24 23:10 10/07/24 04:00 Lorazepam 2 Mg/Ml Inj IVP 1 mg Q30M PRN Administration Alcohol Withdrawal Protocol Potassium Bicarbonate 50 meq 10/06/24 19:21 10/06/24 19:53 Potassium Bicarb 25 Meq Effervescent Tab PO 10/06/24 19:22 50 meq ONCE ONE Administration Potassium Bicarbonate 50 meq 10/07/24 07:15 10/07/24 13:53 Potassium Bicarb 25 Meq Effervescent Tab PO 10/07/24 09:16 50 meq Q2H KENNETH Administration Potassium Bicarbonate 50 meq 10/07/24 14:30 10/07/24 17:05 Potassium Bicarb 25 Meq Effervescent Tab PO 10/07/24 16:31 50 meq Q2H KENNETH Administration Thiamine HCl 100 mg 10/06/24 23:10 10/06/24 23:33 Thiamine 100 Mg Tablet PO 10/08/24 21:01 100 mg HS KENNETH Administration Thiamine HCl 100 mg 10/07/24 09:00 10/08/24 21:21 Thiamine 100 Mg Tablet PO 10/08/24 21:01 100 mg TID KENNETH Administration Trazodone HCl 50 mg 10/07/24 15:00 10/07/24 15:11 Trazodone Hcl 50 Mg Tablet PO 10/07/24 15:01 50 mg ONCE ONE Administration Medical Decision Making MDM Narrative Medical decision making narrative: I would suspect the with generalized weakness the history of malnutrition and probable vitamin deficiency resulting some weakness. May have some liver failure and/or thrombocytopenia. May have a DVT in this left leg. Lower extremity swelling might be due to history of anal cancer and radiation in the area resulting in poor fluid mobilization. Possible diastolic CHF or alcoholic cardiomyopathy. Does have moderately significant hypokalemia. Does not appear to be related to active fluid loss i.e. diarrhea or vomiting. Generally I think is malnourished. Leg pain may be related to developing a peripheral neuropathy or the edema. INDICATION: Left lower extremity swelling. TECHNIQUE: Left lower extremity Doppler venous ultrasound examination was performed. Grayscale and color Doppler images were obtained. Spectral analysis was performed. COMPARISON: None. FINDINGS: RIGHT LOWER EXTREMITY: Common femoral vein: Fully compressible. No deep vein thrombus. Normal flow and response to augmentation on color Doppler imaging. LEFT LOWER EXTREMITY: Common femoral vein: Fully compressible. No deep vein thrombus. Normal flow and response to augmentation on color Doppler imaging. Superficial femoral vein: Fully compressible. No deep vein thrombus. Normal flow on color Doppler imaging. Deep femoral vein: No deep vein thrombus Popliteal vein: Fully compressible. No deep vein thrombus. Normal flow on color Doppler imaging. Lower calf: The visualized posterior tibial and peroneal veins are fully compressible. No deep vein thrombus. Normal flow and response to augmentation on color Doppler imaging. Superficial veins: The superficial veins, including the greater saphenous vein, remain patent and are fully compressible. Soft tissues: No popliteal fossa fluid collection identified. IMPRESSION: No deep vein thrombus within the left lower extremity. Dictated by Christiano Chamorro MD @ 10/06/2024 9:23:50 PM Labs show significant hypokalemia. Initiated IV and oral replacement. I think would be good idea to admit for weakness and hypokalemia/continued potassium replacement. I have discussed with hospitalist who is accepting. Medical Records Medical records reviewed: Yes I reviewed the patient's medical records Lab Data Lab results reviewed: Yes I reviewed the patient's lab results Labs: Lab Results 10/06/24 10/06/24 10/06/24 Range/Units 18:18 18:35 18:53 WBC 3.72 L (4.50-11.00) K/uL RBC 2.45 L (4.30-5.90) m/uL Hgb 9.5 L (13.5-17.5) gm/dL Hct 28.3 L (37.0-53.0) % MCV 116 H (80-100) fL MCH 39 H (26-34) pg MCHC 34 (32-36) gm/dL RDW Coeff of Ebenezer 14.8 (11.5-15.5) % Plt Count 157 (140-440) K/uL Neut % (Auto) 66.1 (42.0-72.0) % Lymph % (Auto) 14.8 L (20-44) % Labette % (Auto) 18.5 H (0.0-11.0) % Eos % (Auto) 0.3 (0.0-7.0) % Baso % (Auto) 0.3 (0.0-3.0) % Neut # (Auto) 2.50 (1.7-7.0) K/uL Lymph # (Auto) 0.60 L (0.90-2.90) K/uL Labette # (Auto) 0.70 (0.00-0.90) K/UL Eos # (Auto) 0.00 (0.00-0.50) K/uL Baso # (Auto) 0.00 (0.00-0.30) K/uL Abs Immat Gran (auto) 0.00 (0.00-0.30) K/uL Imm/Tot Granulo (auto) 0.0 % INR 0.92 (0.91-1.10) APTT 31 (23-33) Seconds Sodium 132 L (135-149) mmol/L Potassium 2.2 L* (3.6-5.1) mmol/L Chloride 92 L (96-114) mmol/L Carbon Dioxide 33 H (20-32) mmol/L Anion Gap 7 (7-15) mEq/L BUN 9 (7-30) mg/dL Creatinine 0.7 (0.5-1.5) mg/dL Estimated Creat Clear 101.59 Estimated GFR 107 ml/min Glucose 92 (60-115) mg/dL Lactate 1.4 (0.5-1.9) mmol/L Calcium 8.6 (8.4-10.6) mg/dL Magnesium 2.1 (1.5-2.6) mg/dL Total Bilirubin 1.2 (0.1-1.5) mg/dL Direct Bilirubin 0.4 (0.0-0.5) mg/dL AST 146 H (12-35) U/L ALT 125 H (4-50) U/L Alkaline Phosphatase 163 H (40-150) U/L Total Protein 6.2 (6.0-8.3) g/dL Albumin 3.3 (3.3-5.0) g/dL Vitamin B12 982 H (243-894) pg/mL RBC Fol Ochoa for Serum (>=5.9) ng/mL TSH (0.270-4.20) uIU/mL Urine Color Yellow (Yellow) Urine Appearance Clear (Clear) Urine pH 7.0 (5.0-8.5) Ur Specific Paterson 1.015 (1.000-1.030) Urine Protein 1+ A (Negative) Urine Glucose (UA) Negative (Negative) Urine Ketones Trace A (Negative) Urine Blood 1+ A (Negative) Urine Nitrite Negative (Negative) Urine Bilirubin Negative (Negative) Urine Urobilinogen 2.0 A (0.2-1.0) Ur Leukocyte Esterase Negative (Negative) Urine RBC 0-2 (0-2) Urine WBC 0-2 (0-5) Ur Squamous Epith Cells Few (None-Few) Urine Bacteria Few A (None) Urine Opiates Screen Negative (Negative) Ur Oxycodone Screen Negative (Negative) Urine Methadone Screen Negative (Negative) Ur Barbiturates Screen Negative (Negative) U Tricyclic Antidepress Negative (Negative) Ur Phencyclidine Scrn Negative (Negative) Ur Amphetamines Screen Negative (Negative) U Methamphetamines Scrn Negative (Negative) U Benzodiazepines Scrn Negative (Negative) Urine Cocaine Screen Negative (Negative) U Marijuana (THC) Screen POSITIVE A (Negative) Ur Drug Screen Comment See Note Ethyl Alcohol 0.09 H (0.01-0.03) % Lab Acknowledgement Test Added 10/06/24 10/06/24 10/07/24 Range/Units 19:09 23:54 06:06 WBC 3.02 L (4.50-11.00) K/uL RBC 2.37 L (4.30-5.90) m/uL Hgb 9.4 L (13.5-17.5) gm/dL Hct 27.6 L (37.0-53.0) % MCV 117 H (80-100) fL MCH 40 H (26-34) pg MCHC 34 (32-36) gm/dL RDW Coeff of Ebenezer 14.8 (11.5-15.5) % Plt Count 175 (140-440) K/uL Neut % (Auto) 63.2 (42.0-72.0) % Lymph % (Auto) 16.6 L (20-44) % Labette % (Auto) 19.2 H (0.0-11.0) % Eos % (Auto) 0.7 (0.0-7.0) % Baso % (Auto) 0.3 (0.0-3.0) % Neut # (Auto) 1.90 (1.7-7.0) K/uL Lymph # (Auto) 0.50 L (0.90-2.90) K/uL Labette # (Auto) 0.60 (0.00-0.90) K/UL Eos # (Auto) 0.00 (0.00-0.50) K/uL Baso # (Auto) 0.00 (0.00-0.30) K/uL Abs Immat Gran (auto) 0.00 (0.00-0.30) K/uL Imm/Tot Granulo (auto) 0.0 % INR (0.91-1.10) APTT (23-33) Seconds Sodium 133 L (135-149) mmol/L Potassium 2.4 L* 2.4 L* (3.6-5.1) mmol/L Chloride (96-114) mmol/L Carbon Dioxide (20-32) mmol/L Anion Gap (7-15) mEq/L BUN (7-30) mg/dL Creatinine (0.5-1.5) mg/dL Estimated Creat Clear Estimated GFR ml/min Glucose (60-115) mg/dL Lactate (0.5-1.9) mmol/L Calcium (8.4-10.6) mg/dL Magnesium (1.5-2.6) mg/dL Total Bilirubin (0.1-1.5) mg/dL Direct Bilirubin (0.0-0.5) mg/dL AST (12-35) U/L ALT (4-50) U/L Alkaline Phosphatase (40-150) U/L Total Protein (6.0-8.3) g/dL Albumin (3.3-5.0) g/dL Vitamin B12 (243-894) pg/mL RBC Fol Ochoa for Serum >22.3 (>=5.9) ng/mL TSH (0.270-4.20) uIU/mL Urine Color (Yellow) Urine Appearance (Clear) Urine pH (5.0-8.5) Ur Specific Paterson (1.000-1.030) Urine Protein (Negative) Urine Glucose (UA) (Negative) Urine Ketones (Negative) Urine Blood (Negative) Urine Nitrite (Negative) Urine Bilirubin (Negative) Urine Urobilinogen (0.2-1.0) Ur Leukocyte Esterase (Negative) Urine RBC (0-2) Urine WBC (0-5) Ur Squamous Epith Cells (None-Few) Urine Bacteria (None) Urine Opiates Screen (Negative) Ur Oxycodone Screen (Negative) Urine Methadone Screen (Negative) Ur Barbiturates Screen (Negative) U Tricyclic Antidepress (Negative) Ur Phencyclidine Scrn (Negative) Ur Amphetamines Screen (Negative) U Methamphetamines Scrn (Negative) U Benzodiazepines Scrn (Negative) Urine Cocaine Screen (Negative) U Marijuana (THC) Screen (Negative) Ur Drug Screen Comment Ethyl Alcohol (0.01-0.03) % Lab Acknowledgement Test Added Test Added 06/07/25 06/07/25 06/07/25 Range/Units 06:06 07:08 14:00 WBC (4.50-11.00) K/uL RBC (4.30-5.90) m/uL Hgb (13.5-17.5) gm/dL Hct (37.0-53.0) % MCV (80-100) fL MCH (26-34) pg MCHC (32-36) gm/dL RDW Coeff of Ebenezer (11.5-15.5) % Plt Count (140-440) K/uL Neut % (Auto) (42.0-72.0) % Lymph % (Auto) (20-44) % Labette % (Auto) (0.0-11.0) % Eos % (Auto) (0.0-7.0) % Baso % (Auto) (0.0-3.0) % Neut # (Auto) (1.7-7.0) K/uL Lymph # (Auto) (0.90-2.90) K/uL Labette # (Auto) (0.00-0.90) K/UL Eos # (Auto) (0.00-0.50) K/uL Baso # (Auto) (0.00-0.30) K/uL Abs Immat Gran (auto) (0.00-0.30) K/uL Imm/Tot Granulo (auto) % INR (0.91-1.10) APTT (23-33) Seconds Sodium 130 L (135-149) mmol/L Potassium Cancelled 2.6 L* (3.6-5.1) mmol/L Chloride 96 93 L (96-114) mmol/L Carbon Dioxide 31 34 H (20-32) mmol/L Anion Gap 6 L 3 L (7-15) mEq/L BUN 9 12 (7-30) mg/dL Creatinine 0.6 0.6 (0.5-1.5) mg/dL Estimated Creat Clear 123.10 123.10 Estimated GFR 113 113 ml/min Glucose 114 156 H (60-115) mg/dL Lactate (0.5-1.9) mmol/L Calcium 8.2 L 8.2 L (8.4-10.6) mg/dL Magnesium 2.0 (1.5-2.6) mg/dL Total Bilirubin 1.2 (0.1-1.5) mg/dL Direct Bilirubin (0.0-0.5) mg/dL AST 103 H (12-35) U/L ALT 103 H (4-50) U/L Alkaline Phosphatase 149 (40-150) U/L Total Protein 5.7 L (6.0-8.3) g/dL Albumin 2.9 L (3.3-5.0) g/dL Vitamin B12 (243-894) pg/mL RBC Fol Ochoa for Serum (>=5.9) ng/mL TSH 1.010 (0.270-4.20) uIU/mL Urine Color (Yellow) Urine Appearance (Clear) Urine pH (5.0-8.5) Ur Specific Paterson (1.000-1.030) Urine Protein (Negative) Urine Glucose (UA) (Negative) Urine Ketones (Negative) Urine Blood (Negative) Urine Nitrite (Negative) Urine Bilirubin (Negative) Urine Urobilinogen (0.2-1.0) Ur Leukocyte Esterase (Negative) Urine RBC (0-2) Urine WBC (0-5) Ur Squamous Epith Cells (None-Few) Urine Bacteria (None) Urine Opiates Screen (Negative) Ur Oxycodone Screen (Negative) Urine Methadone Screen (Negative) Ur Barbiturates Screen (Negative) U Tricyclic Antidepress (Negative) Ur Phencyclidine Scrn (Negative) Ur Amphetamines Screen (Negative) U Methamphetamines Scrn (Negative) U Benzodiazepines Scrn (Negative) Urine Cocaine Screen (Negative) U Marijuana (THC) Screen (Negative) Ur Drug Screen Comment Ethyl Alcohol (0.01-0.03) % Lab Acknowledgement Test Added ECG Data Attestation: I personally reviewed and interpreted this ECG as follows: (Normal sinus rhythm at rate of 74) Discharge Plan Discharge Clinical Impression: Weakness, Hypokalemia, Edema, peripheral, Alcohol abuse Patient Disposition: Admitted As Observation Condition: Stable Activity Level: Activity as Tolerated and Use Walker Discharge Diet: Heart Healthy (2 gm sodium, low fat)
[2024-10-06 18:31] LABS: Appearance Urine Clear (Clear); Bilirubin Urine Negative (Negative); Blood Urine 1+ (Negative); Color Urine Yellow (Yellow); Glucose Urine Negative (Negative); Ketones Urine Trace (Negative); Leukocyte Esterase Urine Negative (Negative); Nitrite Urine Negative (Negative); Protein Urine 1+ (Negative); Specific Gravity Urine 1.015 (1.000-1.030)
--- NOTE | 2024-10-06 18:31 | CRLHL7_ITS ---
For Patients: As a result of the Century Cures Act, medical imaging exams and procedure reports are released immediately into your electronic medical record. You may view this report before your referring provider. If you have questions, please contact your health care provider. INDICATION: Left lower extremity swelling. TECHNIQUE: Left lower extremity Doppler venous ultrasound examination was performed. Grayscale and color Doppler images were obtained. Spectral analysis was performed. COMPARISON: None. FINDINGS: RIGHT LOWER EXTREMITY: Common femoral vein: Fully compressible. No deep vein thrombus. Normal flow and response to augmentation on color Doppler imaging. LEFT LOWER EXTREMITY: Common femoral vein: Fully compressible. No deep vein thrombus. Normal flow and response to augmentation on color Doppler imaging. Superficial femoral vein: Fully compressible. No deep vein thrombus. Normal flow on color Doppler imaging. Deep femoral vein: No deep vein thrombus Popliteal vein: Fully compressible. No deep vein thrombus. Normal flow on color Doppler imaging. Lower calf: The visualized posterior tibial and peroneal veins are fully compressible. No deep vein thrombus. Normal flow and response to augmentation on color Doppler imaging. Superficial veins: The superficial veins, including the greater saphenous vein, remain patent and are fully compressible. Soft tissues: No popliteal fossa fluid collection identified. IMPRESSION: No deep vein thrombus within the left lower extremity. Dictated by Christiano Chamorro MD @ 10/06/2024 9:23:50 PM (Electronically Signed)
[2024-10-06] MEDS: 0.9 % SODIUM CHLORIDE 1000 ml 1,000 ML IV (18:35)
[2024-10-06 18:37] LABS: Bacteria Urine Few; RBC Urine 0-2 (0-2); Squamous Epithelial Cell Urine Few (None-Few); WBC Urine 0-2 (0-5)
[2024-10-06 18:40] LABS: Lactate* 1.4 mmol/L (0.5-1.9)
[2024-10-06 18:42] LABS: Basophils Percent Auto 0.3 % (0.0-3.0); Eosinophils Percent Auto 0.3 % (0.0-7.0); Hematocrit 28.3 % (37.0-53.0); Hemoglobin* 9.5 gm/dL (13.5-17.5); Lymphocytes Percent Auto 14.8 % (20-44); Mean Corpuscular HGB Conc 34 gm/dL (32-36); Mean Corpuscular Hemoglobin 39 pg (26-34); Mean Corpuscular Volume 116 fL (80-100); Monocytes Percent Auto 18.5 % (0.0-11.0); Neutrophils Percent Auto 66.1 % (42.0-72.0); Platelet Count* 157 K/uL (140-440); RDW Coefficient of Variation % 14.8 % (11.5-15.5); Red Blood Count 2.45 m/uL (4.30-5.90); Slide Review Reflex No; White Blood Count* 3.72 K/uL (4.50-11.00)
[2024-10-06 18:56] LABS: Albumin* 3.3 g/dL (3.3-5.0); Chloride* 92 mmol/L (96-114)
[2024-10-06 18:57] LABS: Sodium* 132 mmol/L (135-149)
[2024-10-06 18:59] LABS: Anion Gap 7 mEq/L (7-15); Blood Urea Nitrogen* 9 mg/dL (7-30); Carbon Dioxide* 33 mmol/L (20-32); Creatinine* 0.7 mg/dL (0.5-1.5); Est. Creatinine Clearance* 101.59; Estimated Glomerular Filt Rate 107 ml/min
[2024-10-06 19:00] LABS: Alanine Aminotransferase* 125 U/L (4-50); Alkaline Phosphatase* 163 U/L (40-150); Aspartate Amino Transferase* 146 U/L (12-35); Bilirubin Direct* 0.4 mg/dL (0.0-0.5); Bilirubin Total* 1.2 mg/dL (0.1-1.5); Calcium* 8.6 mg/dL (8.4-10.6); Ethanol* 0.09 % (0.01-0.03); Glucose* 92 mg/dL (60-115); Total Protein* 6.2 g/dL (6.0-8.3)
[2024-10-06 19:04] LABS: INR 0.92 (0.91-1.10); Potassium* 2.2 mmol/L (3.6-5.1); Prothrombin Time 13.1 Seconds
[2024-10-06 19:05] LABS: Partial Thromboplastin Time* 31 Seconds (23-33)
[2024-10-06 19:20] LABS: Magnesium* 2.1 mg/dL (1.5-2.6)
[2024-10-06] MEDS: FOLIC ACID 1 MG in 0.9 % SODIUM CHLORIDE 50 ml 50 ML 100.4 MG IVPB (19:51)
[2024-10-06] MEDS: POTASSIUM BICARB 25 MEQ EFFERVESCENT TAB 50 MEQ PO (19:53)
[2024-10-06] MEDS: POTASSIUM CHLORIDE 10 MEQ/100 ML PIGGYBACK 100 MEQ IVPB (19:59)
[2024-10-06] MEDS: 5 % DEXTROSE IN LAC RINGER'S 1,000 ML 125 ML IV (19:59)
[2024-10-06 20:11] LABS: Vitamin B12* 982 pg/mL (243-894)
[2024-10-06] MEDS: THIAMINE 250 MG in 0.9 % SODIUM CHLORIDE 100 ml 100 ML 102.5 MG IVPB (20:30)
--- NOTE | 2024-10-06 21:25 | PM.IMHP1 ---
Assessment and Plan Assessment and plan (1) Falls: Status: Acute (2) Weakness: Status: Acute (3) Alcohol abuse: Problem comment: [place] Status: Acute (4) HIV positive: Problem comment: - Follows at [facility] [place], treated with ODEFSEY (gzhcvzmlnunsm-vduwtfgisum-uykesztui alafenamide) Status: Chronic (5) Hypokalemia: Status: Acute (6) Edema, peripheral: Problem comment: chronic alcohol abuse, antidepressant use, heart failure Status: Acute (7) Tobacco use disorder: Problem comment: - on-going Status: Chronic (8) Protein calorie malnutrition: Status: Chronic Plan This is a 59-year-old male with history of alcohol abuse, HIV, protein calorie malnutrition, and history of anal cancer with 4 weeks of falls, weakness, and lower extremity edema. Lab findings are significant for macrocytic anemia with an MCV of 116, significant hypokalemia with a potassium of 2.2, elevated alk-phos, AST and ALT, and medical blood alcohol level of 0.09%. Ultrasound of left lower extremity is negative for DVT. Differential for falls, weakness, and lower extremity edema in this individual includes alcohol abuse, cirrhosis, protein calorie malnutrition, trazodone induced hypokalemia. I reviewed his medications and while none of them are likely to cause lower extremity edema, or rosuvastatin may cause muscle weakness and so I am holding this. Also trazodone can worsen hypokalemia and may also worsen weakness or put him at risk for falls. Will decrease his evening dose to 50 and if he does not improve, this be further tapered. I will otherwise continue his home medications. Additionally I have ordered a urine toxicology screen, repeat potassium after he got potassium replacement in the emergency department, and a folate level. He has already started getting thiamin and folate replacement along with dextrose. Four to [facility] protocol and will have PT and OT evaluate him tomorrow. I am holding off on an echo as he had 1 just under a year ago, which showed an EF of 50-55% at that time and normal global systolic RV function. Admit for observation on telemetry will replacing potassium. Magnesium is notably within normal limits. I do think that protein calorie malnutrition has contributed to his weakness and falls and is likely secondary to alcohol use. Have also ordered social work consult and nutrition consult. Hospitalist- H&P: HPI History of Present Illness Time Seen by Provider: 21:26 Date Seen: 10/06/24 Chief complaint: pain/weakness in legs Narrative: Edmar Zamora is a 59 year old male with history of alcohol abuse, alcohol withdrawal seizure, anal cancer in remission, HIV, protein calorie malnutrition presented through the emergency department for concerns of falls and weakness. He tells me that he noticed 1 day about 4 weeks ago that both legs were swollen when he was taking his socks off. He was in this hospital last year for diffuse and extensive lower extremity edema thought to be secondary to ibuprofen use at that time. That had resolved and he had no swelling until recently. He has not taken any ibuprofen since last year when that happened. He also denies any use of thing [id number] except for acetaminophen, specifically he denies taking Aleve, Advil, Motrin, naproxen, or ibuprofen. He tells me that he has been feeling weak and falling daily since the swelling started. The reason he came to the ER today was because he fell twice at work. Because of the weakness and has been hard for him to get back up once he falls. He scraped his right cadet when he fell today, but denies any other injuries from today's falls. He has been drinking alcohol daily for many years. He cut down about 3 years ago, and now drinks 2 alcoholic drinks each day. When I ask him to quantify how much alcohol he puts in there, he became agitated and told me that he did not know. I asked him how much alcohol he buys each week, and again he could not tell me and said that he has no idea how much is in each bottle he buys. He was able to show me with his hands about how big the bottle is and it appears to be about a L size bottle. When I ask if that could be the case, he says he has no idea how much a L is. His last drink was last night. He denies any alcohol withdrawal symptoms. When I note that he was shaking very badly when he sits up, he tells me it is from his essential tremor. Review of Systems Status of ROS: Reports: 10 or more systems reviewed and unremarkable except as noted in History and below Medical Decision Making Medical Decision Making Code Status: DNR/DNI Has patient completed a Health Care Directive: No During This Stay, Who Would You Like To Make Decisions For You In The Event You Are Unable To Make Them For Yourself?: Sister, Merlyn Kerr, is his POA should that be needed, . [facility] Medical History (Updated 10/06/24 @ 23:18 by Che Lucas MD) Alcohol withdrawal seizure ?F10.939 - Alcohol use, unspecified with withdrawal, unspecified (ICD-10) ?R56.9 - Unspecified convulsions (ICD-10) Elevated brain natriuretic peptide (BNP) level ?R79.89 - Other specified abnormal findings of blood chemistry (ICD-10) Anemia ?D64.9 - Anemia, unspecified (ICD-10) Prolonged QT interval ?R94.31 - Abnormal electrocardiogram [ECG] [EKG] (ICD-10) Pain, dental ?K08.89 - Other specified disorders of teeth and supporting structures (ICD-10) NSAIDs adverse reaction ?T39.395A - Adverse effect of other nonsteroidal anti-inflammatory drugs [NSAID], initial encounter (ICD-10) Anxiety ?F41.9 - Anxiety disorder, unspecified (ICD-10) Thrombocytopenia (05/10/14) ?D69.6 - Thrombocytopenia, unspecified (ICD-10) NSAID long-term use ?Z79.1 - jail (current) use of non-steroidal anti-inflammatories (NSAID) (ICD-10) Tubular adenoma of colon ?D12.6 - Benign neoplasm of colon, unspecified (ICD-10) History of anal cancer ?Z85.048 - Personal history of other malignant neoplasm of rectum, rectosigmoid junction, and anus (ICD-10) History of alcohol use disorder ?Z87.898 - Personal history of other specified conditions (ICD-10) Tobacco use disorder ?F17.200 - Nicotine dependence, unspecified, uncomplicated (ICD-10) Moderate recurrent major depression ?F33.1 - Major depressive disorder, recurrent, moderate (ICD-10) Failure to thrive Protein calorie malnutrition ?E46 - Unspecified protein-calorie malnutrition (ICD-10) Intestinal infection due to enterotoxigenic E. coli ?A04.1 - Enterotoxigenic Escherichia coli infection (ICD-10) HIV positive ?Z21 - Asymptomatic human immunodeficiency virus [HIV] infection status (ICD-10) Family History (Updated 10/06/24 @ 21:32 by Che Lucas MD) Mother Breast cancer Diabetes Social History (Updated 10/06/24 @ 22:09 by Che Lucas MD) Narrative: Receives medical care at [facility] [place]. DNR/DNI resuscitation. Sister, Merlyn Kerr, is his POA should that be needed, . 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 Smokes 1/2ppd. Drinks 2 drinks of vodka cranberry daily. Approx 1L vodka per week. Cut down alcohol use 3 years ago. Last drink was last night. Denies recreational drugs. What is your current living situation?: I presently have a place to live Problems where you live: no known problems Problems where you live details: None In the past 12 months, utilities in danger of being shut off: no In past 12 months, lack of transportation kept you from medical appts, meetings, work, or getting things needed for daily living: no In the past 12 mos, have been you worried that your food would run out before you had money to buy more?: never true In the past 12 mos, the food you bought just didn't last and you didn't have money to buy more?: never true Highest level of school completed/degree received: Bachelor's degree Smoking Status: Current every day smoker What tobacco products do you use: cigarettes Smoking packs per day: 0.5 Smoking cigarettes per day: 10.0 Years smoked: 30 Smoking pack-years: 15.00 Second hand tobacco smoke exposure: No How often do you have a drink containing alcohol: 4 or more times a week Alcohol type: hard liquor Alcohol type details: vodka cranberry How many standard drinks containing alcohol do you have on a typical day: 1 or 2 How often do you have six or more drinks on one occasion: Never AUDIT-C Alcohol total score: 4 Non-prescribed substance use: denies use Caffeine: No How often does anyone, including family, friends and others, physically hurt you: never How often does anyone, including family, friends and others, insult or talk down to you: never How often does anyone, including family, friends and others, threaten you with harm: never How often does anyone, including family, friends and others, scream or curse at you: never service: No Meds Home Medications and Allergies Home Medications ?Medication ?Instructions ?Recorded ?Confirmed ?Type acetaminophen 500 mg tablet 1,250 mg PO .2-3X/DAY PRN 12/29/23 10/06/24 History bupropion HCl 150 mg tablet,12 hr 150 mg PO DAILY 12/29/23 10/06/24 History sustained-release duloxetine 30 mg capsule,delayed 30 mg PO DAILY 12/29/23 10/06/24 History release folic acid 1 mg tablet 1 mg PO DAILY 12/29/23 10/06/24 History multivitamin-ferrous 1 tab PO DAILY 12/29/23 10/06/24 History fumarate-folic acid 18 mg-400 mcg tablet (Certavite-Antioxidant) oxybutynin chloride 5 mg tablet 5 mg PO HS 12/29/23 10/06/24 History propranolol 10 mg tablet 10 mg PO DAILY 12/29/23 10/06/24 History rosuvastatin 10 mg tablet 10 mg PO DAILY 12/29/23 10/06/24 History trazodone 50 mg tablet 25 mg PO TIDWMEAL 12/29/23 10/06/24 History trazodone 50 mg tablet 100 mg (2 x 50 mg) PO HS #10 tabs 12/31/23 10/06/24 Rx bictegravir 50 mg-emtricitabine 1 tab PO DAILY 10/06/24 10/06/24 History 200 mg-tenofovir alafenam 25 mg tablet (Biktarvy) Home Medication Comments: Patient refused to verify with me what he is taking because he gave a list to the ER this morning already. Allergies Allergy/AdvReac Type Severity Reaction Status Date / Time No Known Drug Allergies Allergy Verified 10/06/24 17:20 Exam Narrative: Exam Narrative: General: No acute distress. Irritable. Awake alert oriented x3. Significant tremor noted; increases with trying to hold himself upright in the bed so I can listen to his lungs. Frail appearing extremities with decreased muscle mass of the extremities. HEENT: Normocephalic atraumatic, pupils equally round and reactive to light and accommodation. Oropharynx clear. Mucous membranes are slightly dry. No cervical lymphadenopathy, thyromegaly or carotid bruits. No JVD. Cardiovascular: Regular rate and rhythm. No murmurs, gallops, or rubs. Chest: No increased work of breathing. Clear to auscultation bilaterally. No crackles or wheezes. Abdomen: Bowel sounds present. Soft, nondistended, nontender. No hepatosplenomegaly or masses. Liver edge is nontender to palpation. Extremities: 2+ pitting edema right lower extremity, 3+ pitting edema of left lower extremity to knees bilaterally, no cyanosis or clubbing. Skin: Ecchymoses over low back and all extremities of various stages of healing, including a long purplish ecchymosis on the inner calf of the left lower leg and large bruise over the right hip. Long linear abrasion over the anterior right chin. No jaundice, no pallor, no rashes. Neuro: Generalized weakness with difficulty even sitting up in the bed or holding himself upright in the bed. Moves all extremities. No other focal neurologic deficits noted. Strength is 4/5 in all 4 extremities. Const: Vital Signs, click to edit/add: Vital Signs - 24 hr 10/06/24 17:13 10/06/24 20:01 10/06/24 20:10 Temperature 98.0 F Pulse Rate 72 67 Pulse Rate [Right Pulse Oximeter] 78 Respiratory Rate 18 18 17 Blood Pressure 85/65 L 93/64 Blood Pressure [Ri ght Upper Arm] 142/100 H Pulse Oximetry 96 94 95 Oxygen Delivery Me thod Room Air 10/06/24 20:31 Temperature 98.4 F Pulse Rate 65 Pulse Rate [Right Pulse Oximeter] Respiratory Rate 19 Blood Pressure 109/80 Blood Pressure [Ri ght Upper Arm] Pulse Oximetry 94 Oxygen Delivery Or thod Room Air Hospitalist - H&P: Result Labs Labs: Short CBC 10/06/24 Range/Units 18:35 WBC 3.72 L (4.50-11.00) K/uL Hgb 9.5 L (13.5-17.5) gm/dL Hct 28.3 L (37.0-53.0) % Plt Count 157 (140-440) K/uL BMP 10/06/24 18:35 Sodium 132 L Potassium 2.2 L* Chloride 92 L Carbon Dioxide 33 H BUN 9 Creatinine 0.7 Glucose 92 Calcium 8.6 Liver Function 10/06/24 Range/Units 18:35 Total Bilirubin 1.2 (0.1-1.5) mg/dL Direct Bilirubin 0.4 (0.0-0.5) mg/dL AST 146 H (12-35) U/L ALT 125 H (4-50) U/L Alkaline Phosphatase 163 H (40-150) U/L Albumin 3.3 (3.3-5.0) g/dL Urine 10/06/24 Range/Units 18:18 Urine Color Yellow (Yellow) Urine Appearance Clear (Clear) Urine pH 7.0 (5.0-8.5) Ur Specific [place] 1.015 (1.000-1.030) Urine Protein 1+ A (Negative) Urine Glucose (UA) Negative (Negative) 10/06/2024 EKG: Normal sinus rhythm, 74 beats per minute. Incomplete right bundle-branch block, septal infarct, age undetermined, prolonged QT. this is unchanged from an EKG done in January 2024. Ordering Physician: Franky Luz M.D. Date of Service: 10/06/24 Procedure(s): US venous LE LT Accession Number(s): [id number] cc: Provider,Not a Local; Franky Luz M.D.~ For Patients: As a result of the Cures Act, medical imaging exams and procedure reports are released immediately into your electronic medical record. You may view this report before your referring provider. If you have questions, please contact your health care provider. INDICATION: Left lower extremity swelling. TECHNIQUE: Left lower extremity Doppler venous ultrasound examination was performed. Grayscale and color Doppler images were obtained. Spectral analysis was performed. COMPARISON: None. FINDINGS: RIGHT LOWER EXTREMITY: Common femoral vein: Fully compressible. No deep vein thrombus. Normal flow and response to augmentation on color Doppler imaging. LEFT LOWER EXTREMITY: Common femoral vein: Fully compressible. No deep vein thrombus. Normal flow and response to augmentation on color Doppler imaging. Superficial femoral vein: Fully compressible. No deep vein thrombus. Normal flow on color Doppler imaging. Deep femoral vein: No deep vein thrombus Popliteal vein: Fully compressible. No deep vein thrombus. Normal flow on color Doppler imaging. Lower calf: The visualized posterior tibial and peroneal veins are fully compressible. No deep vein thrombus. Normal flow and response to augmentation on color Doppler imaging. Superficial veins: The superficial veins, including the greater saphenous vein, remain patent and are fully compressible. Soft tissues: No popliteal fossa fluid collection identified. IMPRESSION: No deep vein thrombus within the left lower extremity. Dictated by Christiano Chamorro MD @ 10/06/2024 9:23:50 PM (Electronically Signed)
[2024-10-06] MEDS: THIAMINE 100 MG TABLET PO (23:33)
[2024-10-06] MEDS: TRAZODONE HCL 50 MG TABLET PO (23:33)
[2024-10-06] MEDS: oxyBUTYnin chloride 5 MG TABLET PO (23:34)
[2024-10-06] MEDS: ACETAMINOPHEN 325 MG TABLET 975 MG PO (23:34)
[2024-10-06] MEDS: NICOTINE 14 mg PATCH 1 PATCH TRANSDERMA (23:35)
[2024-10-07] VITALS (17 sets, daily range): BP systolic 89–131; BP diastolic 51–72; PULSE 68–95; RESP 16–20; TEMP 36.1–36.9; O2SAT 92–97
[2024-10-07 00:28] LABS: Potassium* 2.4 mmol/L (3.6-5.1)
[2024-10-07] MEDS: POTASSIUM CHLORIDE 10 MEQ/100 ML PIGGYBACK 100 MEQ IVPB ×3 (01:05→03:25)
[2024-10-07 01:24] LABS: Amphetamine Screen Urine Negative (Negative); Barbiturate Screen Urine Negative (Negative); Benzodiazepines Screen Urine Negative (Negative); Cannabinoid Screen Urine POSITIVE (Negative); Cocaine Screen Urine Negative (Negative); Methadone Screen Urine Negative (Negative); Methamphetamines Screen Urine Negative (Negative); Opiate Screen Urine Negative (Negative); Oxycodone Screen Urine Negative (Negative); Phencyclidine Screen Urine Negative (Negative); Tricyclic Antidepressant Urine Negative (Negative)
[2024-10-07] MEDS: LORazepam 2 MG/ML inj IVP (04:00)
[2024-10-07] MEDS: ACETAMINOPHEN 325 MG TABLET 975 MG PO ×2 (06:15→21:27)
--- NOTE | 2024-10-07 06:25 | PC.NURSE ---
Arrived to the floor at 2100 A&O pleasant and cooperative. VSS. Pt has noticeable constant tremor in upper and lower extremities. Pt reports this is baseline and has had it since he was 14. Reports intermittent pain in TRACY LE and head. CIWAs range from 4-10. PRN Ativan given per protocol. Up to the bathroom w/ a1 and gb. Pt quite shaky but tolerates ambulation. Potassium came back at 2.4. MD updated. See orders. Bed alarm in place. Uses call light appropriately.
[2024-10-07 06:36] LABS: Basophils Percent Auto 0.3 % (0.0-3.0); Eosinophils Percent Auto 0.7 % (0.0-7.0); Hematocrit 27.6 % (37.0-53.0); Hemoglobin* 9.4 gm/dL (13.5-17.5); Lymphocytes Percent Auto 16.6 % (20-44); Mean Corpuscular HGB Conc 34 gm/dL (32-36); Mean Corpuscular Hemoglobin 40 pg (26-34); Mean Corpuscular Volume 117 fL (80-100); Monocytes Percent Auto 19.2 % (0.0-11.0); Neutrophils Percent Auto 63.2 % (42.0-72.0); Platelet Count* 175 K/uL (140-440); RDW Coefficient of Variation % 14.8 % (11.5-15.5); Red Blood Count 2.37 m/uL (4.30-5.90); White Blood Count* 3.02 K/uL (4.50-11.00)
[2024-10-07 06:37] LABS: Slide Review Reflex No
[2024-10-07 06:52] LABS: Albumin* 2.9 g/dL (3.3-5.0); Chloride* 96 mmol/L (96-114); Sodium* 133 mmol/L (135-149)
[2024-10-07 06:54] LABS: Blood Urea Nitrogen* 9 mg/dL (7-30); Creatinine* 0.6 mg/dL (0.5-1.5); Estimated Glomerular Filt Rate 113 ml/min
[2024-10-07 06:55] LABS: Alanine Aminotransferase* 103 U/L (4-50); Alkaline Phosphatase* 149 U/L (40-150); Anion Gap 6 mEq/L (7-15); Aspartate Amino Transferase* 103 U/L (12-35); Bilirubin Total* 1.2 mg/dL (0.1-1.5); Calcium* 8.2 mg/dL (8.4-10.6); Carbon Dioxide* 31 mmol/L (20-32); Glucose* 114 mg/dL (60-115); Total Protein* 5.7 g/dL (6.0-8.3)
[2024-10-07 07:02] LABS: Potassium* 2.4 mmol/L (3.6-5.1)
[2024-10-07] MEDS: POTASSIUM BICARB 25 MEQ EFFERVESCENT TAB 50 MEQ PO ×4 (08:26→17:05)
[2024-10-07] MEDS: DULOXETINE 30 MG CAPSULE DR PO (09:19)
[2024-10-07] MEDS: MULTIVITAMIN/MINERALS 1 TABLET 1 TAB PO (09:19)
[2024-10-07] MEDS: FOLIC ACID 1 MG TABLET PO (09:19)
[2024-10-07] MEDS: SPIRONOLACTONE 25 MG TABLET PO (09:19)
[2024-10-07] MEDS: PROPRANOLOL 20 MG TABLET 10 MG PO (09:20)
[2024-10-07] MEDS: THIAMINE 100 MG TABLET PO ×3 (09:20→21:28)
[2024-10-07] MEDS: buPROPion HCL SR 150 MG TAB PO (09:22)
[2024-10-07] MEDS: GABAPENTIN 300 MG CAPSULE PO ×3 (09:26→21:28)
[2024-10-07 14:23] LABS: Chloride* 93 mmol/L (96-114); Sodium* 130 mmol/L (135-149)
[2024-10-07 14:26] LABS: Anion Gap 3 mEq/L (7-15); Blood Urea Nitrogen* 12 mg/dL (7-30); Carbon Dioxide* 34 mmol/L (20-32); Creatinine* 0.6 mg/dL (0.5-1.5); Estimated Glomerular Filt Rate 113 ml/min
[2024-10-07 14:27] LABS: Calcium* 8.2 mg/dL (8.4-10.6); Glucose* 156 mg/dL (60-115)
[2024-10-07 14:30] LABS: Potassium* 2.6 mmol/L (3.6-5.1)
--- NOTE | 2024-10-07 14:40 | PM.IMPN1 ---
Assessment and Plan Assessment and plan (1) Hypokalemia: Problem comment: Severe, persistent. Continue ongoing monitoring and replacement. He has received approximately 170 mEq of potassium with potassium level increasing from 2.2-2.6. Status: Acute (2) Weakness: Problem comment: Profound, multifactorial. Hypokalemia, myopathy from alcohol abuse, malnutrition, deconditioning all suspected contributors to this. Status: Acute (3) Falls: Problem comment: Recent falls without serious injury. Combination of weakness and ataxia from alcohol use disorder Status: Acute (4) Ataxia: Problem comment: Suspect related to alcohol abuse. PT and OT to evaluate Status: Acute (5) Alcohol abuse: Problem comment: Longstanding problem. Patient currently does not think this is contributing significantly to his current health problems. Start gabapentin for suspected peripheral neuropathy as well as to aid in managing alcohol withdrawal and craving. Status: Acute (6) Edema, peripheral: Problem comment: chronic alcohol abuse, antidepressant use, heart failure all possibly contributing. Start spironolactone. Status: Acute (7) Tobacco use disorder: Problem comment: Nicotine replacement Status: Chronic (8) Protein calorie malnutrition: Problem comment: Likely related to alcohol use disorder. Assess nutritional status in the hospital as well Status: Chronic (9) Tremor: Problem comment: He has been diagnosed as essential tremor. Suspect alcohol-induced chronic tremor as a contributing factor. Status: Acute (10) Diarrhea: Problem comment: Intermittently chronic diarrhea. Monitor. Imodium as needed. Hold lactulose at this time. Status: Acute (11) Alcoholic hepatitis: Problem comment: Mild to moderate. Continue to monitor. Status: Acute (12) Macrocytic anemia: Problem comment: Likely due to alcohol abuse. Monitor for bleeding. Status: Acute Plan 59-year-old male with profound disability related to above problems. Admit for correction of hypokalemia and assessment of residual neurologic disability. Total Time Spent Total Time Spent: Total time spent today is 65 minutes in reviewing outside records, coordination of care, discussing with patient and other providers ongoing management of hypokalemia, alcohol use disorder, weakness, edema, and plans for disposition Subjective Date Seen: 10/07/24 Interval history: Edmar Zamora is a 59 year old male with history of alcohol abuse, alcohol withdrawal seizure, anal cancer in remission, HIV, protein calorie malnutrition presented through the emergency department for concerns of falls and weakness. He tells me that he noticed 1 day about 4 weeks ago that both legs were swollen when he was taking his socks off. He was in this hospital last year for diffuse and extensive lower extremity edema thought to be secondary to ibuprofen use at that time. That had resolved and he had no swelling until recently. He has not taken any ibuprofen since last year when that happened. He also denies any use of thing [id number] except for acetaminophen, specifically he denies taking Aleve, Advil, Motrin, naproxen, or ibuprofen. He tells me that he has been feeling weak and falling daily since the swelling started. The reason he came to the ER today was because he fell twice at work. Because of the weakness and has been hard for him to get back up once he falls. He scraped his right cadet when he fell today, but denies any other injuries from today's falls. He was hospitalized here in December of 2023 with anasarca. This was thought to be a complication of NSAID use. He was treated with furosemide and his edema improved. Eventually the furosemide was discontinued. His edema has come back. He has a history of alcohol use disorder. He reports that he went through treatment in the past. He also apparently had an alcohol withdrawal seizure at some point in the past as well. He reports drinking 2 alcoholic beverages per night. He denies a problem with alcohol. On admission there was concern about his nutritional status. He does report that he has a chronic poor appetite. He has been able to eat but reports that he gets nauseated if he eats too much. He has chronic intermittent diarrhea as well. He is not having bloody diarrhea. He has a history of HIV infection. He is on Biktarvy. He reports his HIV viral load is undetectable for 14 years. He has a history of anal cancer diagnosed on April of 2017. Over the next 2 years he had both radiation and chemotherapy for this. At the completion of that therapy was the beginning of COVID and he has not had any follow-up since then. He is not aware of any recurrence. He does egg nights his sister Iris who lives in [facility] as healthcare power of trade mark attorney. Code status is DNR Exam Narrative: Exam Narrative: He is alert and appears in no distress. He has a fairly prominent course bilateral upper extremity tremor which is minimal at rest and moderate to severe with movement and holding a position. Eyes normal. Oropharynx normal. Neck is supple without mass or adenopathy. Respirations clear to auscultation. Cardiovascular: S1, S2, regular rate and rhythm. Abdomen: Bowel sounds active. Abdomen is soft with minimal diffuse tenderness. Lower Extremities with bilateral 2+ edema. Feet are warm to touch. Intact pedal pulses. Abrasions from recent falls over the right cadet and bruising over the medial left calf noted. Const: Vital Signs, click to edit/add: Vital Signs - 24 hr 10/06/24 17:13 10/06/24 20:01 10/06/24 20:10 Temperature 98.0 F Pulse Rate 72 67 Pulse Rate [Pulse Oximeter] Pulse Rate [Right Pulse Oximeter] 78 Respiratory Rate 18 18 17 Blood Pressure 85/65 L 93/64 Blood Pressure [Le ft Arm] Blood Pressure [Ri ght Arm] Blood Pressure [Ri ght Upper Arm] 142/100 H Pulse Oximetry 96 94 95 Oxygen Delivery Me thod Room Air 10/06/24 20:31 10/06/24 21:28 10/06/24 23:13 Temperature 98.4 F 98.1 F 98.1 F Pulse Rate 65 Pulse Rate [Pulse Oximeter] 71 76 Pulse Rate [Right Pulse Oximeter] Respiratory Rate 19 16 18 Blood Pressure 109/80 Blood Pressure [Le ft Arm] 110/78 107/77 Blood Pressure [Ri ght Arm] Blood Pressure [Ri ght Upper Arm] Pulse Oximetry 94 95 93 Oxygen Delivery Me thod Room Air Room Air Room Air 10/06/24 23:15 10/06/24 23:48 10/07/24 01:05 Temperature 98.1 F Pulse Rate 87 Pulse Rate [Pulse Oximeter] 76 77 Pulse Rate [Right Pulse Oximeter] Respiratory Rate 18 16 Blood Pressure Blood Pressure [Le ft Arm] 109/77 101/60 Blood Pressure [Ri ght Arm] Blood Pressure [Ri ght Upper Arm] Pulse Oximetry 93 92 Oxygen Delivery Me thod Room Air Room Air 10/07/24 02:52 10/07/24 02:55 10/07/24 04:54 Temperature 97.6 F 97.6 F Pulse Rate Pulse Rate [Pulse Oximeter] 77 77 78 Pulse Rate [Right Pulse Oximeter] Respiratory Rate 18 18 16 Blood Pressure Blood Pressure [Le ft Arm] 100/64 100/64 131/51 L Blood Pressure [Ri ght Arm] Blood Pressure [Ri ght Upper Arm] Pulse Oximetry 93 93 93 Oxygen Delivery Me thod Room Air Room Air Room Air 10/07/24 06:12 10/07/24 07:00 10/07/24 08:00 Temperature 97.5 F L Pulse Rate 79 Pulse Rate [Pulse Oximeter] 91 88 Pulse Rate [Right Pulse Oximeter] Respiratory Rate 16 20 Blood Pressure Blood Pressure [Le ft Arm] 100/69 Blood Pressure [Ri ght Arm] Blood Pressure [Ri ght Upper Arm] Pulse Oximetry 94 Oxygen Delivery Me thod Room Air 10/07/24 08:00 10/07/24 08:00 10/07/24 12:30 Temperature 98.5 F 98.2 F Pulse Rate Pulse Rate [Pulse Oximeter] 88 68 Pulse Rate [Right Pulse Oximeter] Respiratory Rate 20 20 18 Blood Pressure Blood Pressure [Le ft Arm] Blood Pressure [Ri ght Arm] 98/67 97/72 Blood Pressure [Ri ght Upper Arm] Pulse Oximetry 94 94 97 Oxygen Delivery Me thod Room Air Room Air Room Air Documenting provider has reviewed patient's vital signs: yes Labs Labs: Laboratory Results - last 24 hr 10/06/24 10/06/24 10/06/24 18:18 18:35 18:53 WBC 3.72 L RBC 2.45 L Hgb 9.5 L Hct 28.3 L MCV 116 H MCH 39 H MCHC 34 RDW Coeff of Ebenezer 14.8 Plt Count 157 Neut % (Auto) 66.1 Lymph % (Auto) 14.8 L [place] % (Auto) 18.5 H Eos % (Auto) 0.3 Baso % (Auto) 0.3 Neut # (Auto) 2.50 Lymph # (Auto) 0.60 L [place] # (Auto) 0.70 Eos # (Auto) 0.00 Baso # (Auto) 0.00 Abs Immat Gran (auto) 0.00 Imm/Tot Granulo (auto) 0.0 INR 0.92 APTT 31 Sodium 132 L Potassium 2.2 L* Chloride 92 L Carbon Dioxide 33 H Anion Gap 7 BUN 9 Creatinine 0.7 Estimated Creat Clear 101.59 Estimated GFR 107 Glucose 92 Lactate 1.4 Calcium 8.6 Magnesium 2.1 Total Bilirubin 1.2 Direct Bilirubin 0.4 AST 146 H ALT 125 H Alkaline Phosphatase 163 H Total Protein 6.2 Albumin 3.3 Vitamin B12 982 H TSH Urine Color Yellow Urine Appearance Clear Urine pH 7.0 Ur Specific [place] 1.015 Urine Protein 1+ A Urine Glucose (UA) Negative Urine Ketones Trace A Urine Blood 1+ A Urine Nitrite Negative Urine Bilirubin Negative Urine Urobilinogen 2.0 A Ur Leukocyte Esterase Negative Urine RBC 0-2 Urine WBC 0-2 Ur Squamous Epith Cells Few Urine Bacteria Few A Urine Opiates Screen Negative Ur Oxycodone Screen Negative Urine Methadone Screen Negative Ur Barbiturates Screen Negative U Tricyclic Antidepress Negative Ur Phencyclidine Scrn Negative Ur Amphetamines Screen Negative U Methamphetamines Scrn Negative U Benzodiazepines Scrn Negative Urine Cocaine Screen Negative U Marijuana (THC) Screen POSITIVE A Ur Drug Screen Comment See Note Ethyl Alcohol 0.09 H Lab Acknowledgement Test Added 10/06/24 10/06/24 10/07/24 19:09 23:54 06:06 WBC 3.02 L RBC 2.37 L Hgb 9.4 L Hct 27.6 L MCV 117 H MCH 40 H MCHC 34 RDW Coeff of [place]ene[place] 14.8 Plt Count 175 Neut % (Auto) 63.2 Lymph % (Auto) 16.6 L [place] % (Auto) 19.2 H Eos % (Auto) 0.7 Baso % (Auto) 0.3 Neut # (Auto) 1.90 Lymph # (Auto) 0.50 L [place] # (Auto) 0.60 Eos # (Auto) 0.00 Baso # (Auto) 0.00 Abs Immat Gran (auto) 0.00 Imm/Tot Granulo (auto) 0.0 INR APTT Sodium 133 L Potassium 2.4 L* 2.4 L* Chloride Carbon Dioxide Anion Gap BUN Creatinine Estimated Creat Clear Estimated GFR Glucose Lactate Calcium Magnesium Total Bilirubin Direct Bilirubin AST ALT Alkaline Phosphatase Total Protein Albumin Vitamin B12 TSH Urine Color Urine Appearance Urine pH Ur Specific [place] Urine Protein Urine Glucose (UA) Urine Ketones Urine Blood Urine Nitrite Urine Bilirubin Urine Urobilinogen Ur Leukocyte Esterase Urine RBC Urine WBC Ur Squamous Epith Cells Urine Bacteria Urine Opiates Screen Ur Oxycodone Screen Urine Methadone Screen Ur Barbiturates Screen U Tricyclic Antidepress Ur Phencyclidine Scrn Ur Amphetamines Screen U Methamphetamines Scrn U Benzodiazepines Scrn Urine Cocaine Screen U Marijuana (THC) Screen Ur Drug Screen Comment Ethyl Alcohol Lab Acknowledgement Test Added Test Added 10/07/24 10/07/24 10/07/24 06:06 07:08 14:00 WBC RBC Hgb Hct MCV MCH MCHC RDW Coeff of Ebenezer Plt Count Neut % (Auto) Lymph % (Auto) [place] % (Auto) Eos % (Auto) Baso % (Auto) Neut # (Auto) Lymph # (Auto) [place] # (Auto) Eos # (Auto) Baso # (Auto) Abs Immat Gran (auto) Imm/Tot Granulo (auto) INR APTT Sodium 130 L Potassium Cancelled 2.6 L* Chloride 96 93 L Carbon Dioxide 31 34 H Anion Gap 6 L 3 L BUN 9 12 Creatinine 0.6 0.6 Estimated Creat Clear 123.10 123.10 Estimated GFR 113 113 Glucose 114 156 H Lactate Calcium 8.2 L 8.2 L Magnesium 2.0 Total Bilirubin 1.2 Direct Bilirubin AST 103 H ALT 103 H Alkaline Phosphatase 149 Total Protein 5.7 L Albumin 2.9 L Vitamin B12 TSH 1.010 Urine Color Urine Appearance Urine pH Ur Specific [place] Urine Protein Urine Glucose (UA) Urine Ketones Urine Blood Urine Nitrite Urine Bilirubin Urine Urobilinogen Ur Leukocyte Esterase Urine RBC Urine WBC Ur Squamous Epith Cells Urine Bacteria Urine Opiates Screen Ur Oxycodone Screen Urine Methadone Screen Ur Barbiturates Screen U Tricyclic Antidepress Ur Phencyclidine Scrn Ur Amphetamines Screen U Methamphetamines Scrn U Benzodiazepines Scrn Urine Cocaine Screen U Marijuana (THC) Screen Ur Drug Screen Comment Ethyl Alcohol Lab Acknowledgement Test Added
[2024-10-07] MEDS: TRAZODONE HCL 50 MG TABLET PO ×3 (15:11→21:27)
--- NOTE | 2024-10-07 15:32 | PC.NURSE ---
Pt pleasant and cooperative with cares. Up with Gait Belt, walker, & SBA. Baseline tremors. See MAR for medication administration with new medication per Dr. Little. TEDS for LE edema. Education of new medications explained and Color My Meds paperwork given. Pt complains of poor oral intake due. Offered Ensure drink which pt denied due to not liking taste. Encouraged high protein, fruits & vegetable diet.
[2024-10-07] MEDS: LOPERAMIDE HCL 2 MG CAPSULE PO ×2 (16:10→21:28)
--- NOTE | 2024-10-07 18:41 | PC.NURSE ---
End of Shift ([id number]): Patient pleasant and cooperative, A&O. VSS, afebrile. Denies pain. Tolerating regular diet. 1A walker/gait belt.
[2024-10-07] MEDS: NICOTINE 14 mg PATCH 1 PATCH TRANSDERMA (21:27)
[2024-10-07] MEDS: oxyBUTYnin chloride 5 MG TABLET PO (21:28)
[2024-10-07] MEDS: TRAZODONE HCL 50 MG TABLET 200 MG PO (21:28)
[2024-10-07] MEDS: SODIUM CHLORIDE 0.9 % (FLUSH) 10 ML SYRINGE 5 ML IVF (21:28)
[2024-10-07 23:06] LABS: Potassium* 3.6 mmol/L (3.6-5.1)
[2024-10-08] VITALS (10 sets, daily range): BP systolic 90–109; BP diastolic 62–79; PULSE 70–92; RESP 16–20; TEMP 36.1–36.6; O2SAT 90–97
--- NOTE | 2024-10-08 06:04 | PC.NURSE ---
[id number]: Patient cooperative with cares. A&Ox3 with some confusion. Scattered bruising throughout d/t multiple falls prior to admission. PRN Tylenol for 4/10 chronic leg and foot pain. A1/walker/GB. Denies CP/SOB. CIWAs 8, 10, 7 mostly due to chronic tremor, no Ativan administered. Soft BP which patient states is chronic.
[2024-10-08 06:36] LABS: Chloride* 100 mmol/L (96-114); Potassium* 3.5 mmol/L (3.6-5.1); Sodium* 136 mmol/L (135-149)
[2024-10-08 06:39] LABS: Anion Gap 0 mEq/L (7-15); Blood Urea Nitrogen* 7 mg/dL (7-30); Carbon Dioxide* 36 mmol/L (20-32); Creatinine* 0.6 mg/dL (0.5-1.5); Est. Creatinine Clearance* 126.37; Estimated Glomerular Filt Rate 113 ml/min
[2024-10-08 06:40] LABS: Calcium* 8.5 mg/dL (8.4-10.6); Glucose* 104 mg/dL (60-115)
[2024-10-08] MEDS: TRAZODONE HCL 50 MG TABLET PO ×4 (07:48→21:19)
[2024-10-08] MEDS: ACETAMINOPHEN 325 MG TABLET 975 MG PO ×2 (07:58→16:14)
[2024-10-08 09:15] LABS: Albumin* 2.6 g/dL (3.3-5.0)
[2024-10-08 09:17] LABS: Alanine Aminotransferase* 78 U/L (4-50); Aspartate Amino Transferase* 65 U/L (12-35); Total Protein* 5.3 g/dL (6.0-8.3)
[2024-10-08 09:18] LABS: Alkaline Phosphatase* 131 U/L (40-150); Bilirubin Direct* 0.2 mg/dL (0.0-0.5); Bilirubin Total* 0.6 mg/dL (0.1-1.5)
[2024-10-08] MEDS: buPROPion HCL SR 150 MG TAB PO (09:19)
[2024-10-08] MEDS: DULOXETINE 30 MG CAPSULE DR PO (09:19)
[2024-10-08] MEDS: PROPRANOLOL 20 MG TABLET 10 MG PO (09:19)
[2024-10-08] MEDS: SPIRONOLACTONE 25 MG TABLET PO (09:19)
[2024-10-08] MEDS: FOLIC ACID 1 MG TABLET PO (09:19)
[2024-10-08] MEDS: THIAMINE 100 MG TABLET PO ×3 (09:20→21:21)
[2024-10-08] MEDS: MULTIVITAMIN/MINERALS 1 TABLET 1 TAB PO (09:20)
[2024-10-08] MEDS: SODIUM CHLORIDE 0.9 % (FLUSH) 10 ML SYRINGE 5 ML IVF ×2 (09:21→21:24)
[2024-10-08] MEDS: LOPERAMIDE HCL 2 MG CAPSULE PO (09:23)
[2024-10-08] MEDS: POTASSIUM CHLORIDE 10 MEQ CAPSULE ER 20 MEQ PO (10:30)
--- NOTE | 2024-10-08 11:20 | PM.IMPN1 ---
Assessment and Plan Assessment and plan (1) Hypokalemia: Problem comment: Severe, persistent. Continue ongoing monitoring and replacement. He has received approximately 170 mEq of potassium with potassium level increasing from 2.2-3.6. Recommend ongoing outpatient potassium supplementation pending outpatient followup. Status: Acute (2) Weakness: Problem comment: Profound, multifactorial. Hypokalemia, myopathy from alcohol abuse, malnutrition, deconditioning all suspected contributors to this. Improving Status: Acute (3) Falls: Problem comment: Recent falls without serious injury. Combination of weakness and ataxia from alcohol use disorder Status: Acute (4) Ataxia: Problem comment: Suspect related to alcohol abuse. PT and OT to evaluate. Front wheel walker recommended Status: Acute (5) Alcohol abuse: Problem comment: Longstanding problem. Patient currently does not think this is contributing significantly to his current health problems. Start gabapentin for suspected peripheral neuropathy as well as to aid in managing alcohol withdrawal and craving. Status: Acute (6) Edema, peripheral: Problem comment: chronic alcohol abuse, antidepressant use, heart failure all possibly contributing. Start spironolactone. Status: Acute (7) Tobacco use disorder: Problem comment: Nicotine replacement Status: Chronic (8) Protein calorie malnutrition: Problem comment: Likely related to alcohol use disorder. Assess nutritional status in the hospital as well Status: Chronic (9) Tremor: Problem comment: He has been diagnosed as essential tremor. Suspect alcohol-induced chronic tremor as a contributing factor. Beta-laurel therapy is limited due to low blood pressure Status: Acute (10) Diarrhea: Problem comment: Intermittently chronic diarrhea. Monitor. Imodium as needed. Hold lactulose at this time. Status: Acute (11) Alcoholic hepatitis: Problem comment: Mild to moderate. Continue to monitor. Status: Acute (12) Macrocytic anemia: Problem comment: Likely due to alcohol abuse. Monitor for bleeding. Status: Acute (13) Hypotension: Problem comment: By history is an acute on chronic problem. Continue to monitor. No life-threatening cause such as bleeding, sepsis, heart failure, is apparent. Caution with use of spironolactone and beta-laurel Status: Acute Plan Continue in hospital for another day of management and monitoring of weakness, hypokalemia, hypotension. Total Time Spent Total Time Spent: Total time spent today is 35 minutes in evaluation and management of above problems. Subjective Date Seen: 10/08/24 Interval history: Edmar Zamora is a 59 year old male with history of alcohol abuse, alcohol withdrawal seizure, anal cancer in remission, HIV, protein calorie malnutrition presented through the emergency department for concerns of falls and weakness. He tells me that he noticed 1 day about 4 weeks ago that both legs were swollen when he was taking his socks off. He was in this hospital last year for diffuse and extensive lower extremity edema thought to be secondary to ibuprofen use at that time. That had resolved and he had no swelling until recently. He has not taken any ibuprofen since last year when that happened. He also denies any use of thing [id number] except for acetaminophen, specifically he denies taking Aleve, Advil, Motrin, naproxen, or ibuprofen. He tells me that he has been feeling weak and falling daily since the swelling started. The reason he came to the ER today was because he fell twice at work. Because of the weakness and has been hard for him to get back up once he falls. He scraped his right cadet when he fell today, but denies any other injuries from today's falls. He was hospitalized here in December of 2023 with anasarca. This was thought to be a complication of NSAID use. He was treated with furosemide and his edema improved. Eventually the furosemide was discontinued. His edema has come back. He has a history of alcohol use disorder. He reports that he went through treatment in the past. He also apparently had an alcohol withdrawal seizure at some point in the past as well. He reports drinking 2 alcoholic beverages per night. He denies a problem with alcohol. On admission there was concern about his nutritional status. He does report that he has a chronic poor appetite. He has been able to eat but reports that he gets nauseated if he eats too much. He has chronic intermittent diarrhea as well. He is not having bloody diarrhea. He has a history of HIV infection. He is on Biktarvy. He reports his HIV viral load is undetectable for 14 years. He has a history of anal cancer diagnosed on April of 2017. Over the next 2 years he had both radiation and chemotherapy for this. At the completion of that therapy was the beginning of COVID and he has not had any follow-up since then. He is not aware of any recurrence. He designates his sister Iris who lives in [facility] as healthcare power of waste elimination. Code status is DNR 10/08/2024: Patient reports that he is feeling stronger today. Therapy notes improvement. Recommending front wheel walker at home. Still having some diarrhea. Typically 2 loose stools per day. This is been a chronic problem since treatment for his anal cancer. Has had more recent colonoscopy which has been normal. Takes Imodium 2 mg daily at home. Reports his appetite is improved today. Blood pressure has been low which is also a chronic problem for him. Last hospitalization his propranolol was reduced to 10 mg daily due to low blood pressure. Exam Narrative: Exam Narrative: He is alert and appears in no distress. He is oriented to his circumstances. Speech is fluent. Respirations are clear to auscultation. Cardiovascular: S1, S2, regular rate and rhythm. No murmur gallop or rub. Abdomen: Bowel sounds active. Abdomen is soft without tenderness or mass. Palpation in the groin/inguinal area is nontender without mass or adenopathy. Indicates this is an area of chronic pain for him. Right hip has some discomfort with range of motion and strength testing. No significant discomfort in left hip. Bilaterally hip flexion is weak. Trace edema in his extremities. Intact pedal pulses and good capillary refill. Const: Vital Signs, click to edit/add: Vital Signs - 24 hr 10/07/24 12:30 10/07/24 16:00 10/07/24 16:32 Temperature 98.2 F 97.7 F 97.7 F Pulse Rate Pulse Rate [Pulse Oximeter] 68 82 82 Respiratory Rate 18 18 18 Blood Pressure [Le ft Arm] Blood Pressure [Ri ght Arm] 97/72 102/69 102/69 Pulse Oximetry 97 95 95 Oxygen Delivery Me thod Room Air Room Air Room Air 10/07/24 16:33 10/07/24 16:37 10/07/24 17:36 Temperature Pulse Rate 85 Pulse Rate [Pulse Oximeter] 82 Respiratory Rate 18 18 Blood Pressure [Le ft Arm] Blood Pressure [Ri ght Arm] Pulse Oximetry 95 Oxygen Delivery [place] thod Room Air 10/07/24 20:16 10/07/24 20:17 10/07/24 22:44 Temperature 97.8 F 97.8 F 96.9 F L Pulse Rate Pulse Rate [Pulse Oximeter] 95 95 78 Respiratory Rate 20 20 18 Blood Pressure [Le ft Arm] Blood Pressure [Ri ght Arm] 89/63 L 89/63 L 95/62 Pulse Oximetry 94 94 92 Oxygen Delivery Me thod Room Air Room Air Room Air 10/07/24 23:00 10/07/24 23:00 10/08/24 00:00 Temperature 96.9 F L Pulse Rate 70 Pulse Rate [Pulse Oximeter] 78 Respiratory Rate 18 18 Blood Pressure [Le ft Arm] Blood Pressure [Ri ght Arm] 95/62 Pulse Oximetry 92 92 Oxygen Delivery Me thod Room Air Room Air 10/08/24 02:58 10/08/24 02:58 10/08/24 07:00 Temperature 97.1 F L 97.1 F L Pulse Rate Pulse Rate [Pulse Oximeter] 75 75 92 Respiratory Rate 18 18 16 Blood Pressure [Le ft Arm] Blood Pressure [Ri ght Arm] 94/74 94/74 Pulse Oximetry 90 90 Oxygen Delivery Me thod Room Air Room Air 10/08/24 07:00 10/08/24 07:00 10/08/24 07:00 Temperature 97.6 F Pulse Rate 70 Pulse Rate [Pulse Oximeter] 92 Respiratory Rate 16 16 Blood Pressure [Le ft Arm] 90/67 Blood Pressure [Ri ght Arm] Pulse Oximetry 96 96 Oxygen Delivery Me thod Room Air Room Air 10/08/24 08:00 Temperature 97.6 F Pulse Rate Pulse Rate [Pulse Oximeter] 92 Respiratory Rate 16 Blood Pressure [Le ft Arm] 90/67 Blood Pressure [Ri ght Arm] Pulse Oximetry 96 Oxygen Delivery Me thod Room Air Documenting provider has reviewed patient's vital signs: yes Labs Labs: Laboratory Results - last 24 hr 10/07/24 10/07/24 10/08/24 14:00 22:42 06:04 Sodium 130 L 136 Potassium 2.6 L* 3.6 3.5 L Chloride 93 L 100 Carbon Dioxide 34 H 36 H Anion Gap 3 L 0 L BUN 12 7 Creatinine 0.6 0.6 Estimated Creat Clear 123.10 126.37 Estimated GFR 113 113 Glucose 156 H 104 Calcium 8.2 L 8.5 Total Bilirubin 0.6 Direct Bilirubin 0.2 AST 65 H ALT 78 H Alkaline Phosphatase 131 Total Protein 5.3 L Albumin 2.6 L Lab Acknowledgement 10/08/24 08:55 Sodium Potassium Chloride Carbon Dioxide Anion Gap BUN Creatinine Estimated Creat Clear Estimated GFR Glucose Calcium Total Bilirubin Direct Bilirubin AST ALT Alkaline Phosphatase Total Protein Albumin Lab Acknowledgement Test Added
[2024-10-08] MEDS: GABAPENTIN 300 MG CAPSULE PO ×3 (11:32→21:21)
--- NOTE | 2024-10-08 18:43 | PC.NURSE ---
End of shift: patient is A&Ox3, pleasant and cooperative with cares. Scattered bruising throughout r/t multiple falls in the home setting. PRN Tylenol administered x2 for tooth pain. SBA/walker/GB and ambulating hallways. Denies CP/SOB. CIWAs at 7 mostly due to chronic tremor, no Ativan administered. Soft BP which patient states is chronic. MD aware. Patient tolerating a reg. diet. soft BM reported by patient today, Imodium administered w/relief x1. Plan to D/C tomorrow to home. Patient's tele shows NSR.
[2024-10-08] MEDS: TRAZODONE HCL 50 MG TABLET 200 MG PO (21:20)
[2024-10-08] MEDS: oxyBUTYnin chloride 5 MG TABLET PO (21:21)
[2024-10-08] MEDS: NICOTINE 14 mg PATCH 1 PATCH TRANSDERMA (21:22)
[2024-10-09] VITALS (7 sets, daily range): BP systolic 101–110; BP diastolic 72–80; PULSE 60–86; RESP 16–20; TEMP 36.2–36.5; O2SAT 93–97
[2024-10-09] MEDS: ACETAMINOPHEN 325 MG TABLET 975 MG PO ×2 (00:54→08:10)
[2024-10-09 05:07] LABS: Folate, Serum >22.3 ng/mL (>=5.9)
[2024-10-09 06:20] LABS: Chloride* 104 mmol/L (96-114); Potassium* 4.3 mmol/L (3.6-5.1); Sodium* 137 mmol/L (135-149)
[2024-10-09 06:23] LABS: Anion Gap 0 mEq/L (7-15); Blood Urea Nitrogen* 8 mg/dL (7-30); Carbon Dioxide* 33 mmol/L (20-32); Creatinine* 0.6 mg/dL (0.5-1.5); Est. Creatinine Clearance* 121.83; Estimated Glomerular Filt Rate 113 ml/min; Glucose* 95 mg/dL (60-115)
--- NOTE | 2024-10-09 06:46 | PC.NURSE ---
Shift note ([id number]): Patient pleasant, alert and oriented. Transferred with gait belt and stand by assist. Reported tooth pain and a headache. Given PRN Tylenol. BPs within normal limits.?
[2024-10-09] MEDS: TRAZODONE HCL 50 MG TABLET PO ×2 (08:10→12:32)
[2024-10-09] MEDS: POTASSIUM CHLORIDE 10 MEQ CAPSULE ER 20 MEQ PO (08:10)
[2024-10-09] MEDS: MULTIVITAMIN/MINERALS 1 TABLET 1 TAB PO (10:15)
[2024-10-09] MEDS: DULOXETINE 30 MG CAPSULE DR PO (10:15)
[2024-10-09] MEDS: GABAPENTIN 300 MG CAPSULE PO ×2 (10:15→13:33)
[2024-10-09] MEDS: buPROPion HCL SR 150 MG TAB PO (10:15)
[2024-10-09] MEDS: FOLIC ACID 1 MG TABLET PO (10:15)
[2024-10-09] MEDS: SODIUM CHLORIDE 0.9 % (FLUSH) 10 ML SYRINGE 5 ML IVF (10:16)
[2024-10-09] MEDS: SPIRONOLACTONE 25 MG TABLET PO (10:49)
[2024-10-09] MEDS: PROPRANOLOL 20 MG TABLET 10 MG PO (10:49)
--- NOTE | 2024-10-09 11:54 | PM.DS1 ---
DS: Providers Provider Date Seen: 10/09/24 Date of admission: 10/07/24 14:36 Primary care physician: Not a Local Provider Admitting Clinician: Isabelle Rasmussen MD Attending Physician on discharge: Jose Little MD Date of Discharge: 10/09/24 DS: Diagnosis Discharge Diagnosis (1) Falls: Status: Acute Problem details: Recent falls without serious injury. Combination of weakness and ataxia from alcohol use disorder. Strength and balance improved during hospital stay (2) Weakness: Status: Acute Problem details: Profound, multifactorial. Hypokalemia, myopathy from alcohol abuse, malnutrition, deconditioning all suspected contributors to this. Improving (3) Hypokalemia: Status: Acute Problem details: Severe, persistent. Continue ongoing monitoring and replacement. He has received approximately 170 mEq of potassium with potassium level increasing from 2.2-3.6. Potassium is 4.3 on discharge. Hypokalemia may be less of a problem on spironolactone. Recheck in 1 week in clinic (4) Edema, peripheral: Status: Acute Problem details: chronic alcohol abuse, antidepressant use, heart failure all possibly contributing. Start spironolactone. (5) Alcohol abuse: Status: Acute Problem details: Longstanding problem. Patient currently does not think this is contributing significantly to his current health problems. Start gabapentin for suspected peripheral neuropathy as well as to aid in managing alcohol withdrawal and craving. Recommend ongoing outpatient support for abstinence from alcohol (6) Protein calorie malnutrition: Status: Chronic Problem details: Likely related to alcohol use disorder. Assess nutritional status in the hospital as well (7) Ataxia: Status: Acute Problem details: Suspect related to alcohol abuse. PT and OT to evaluate. Front wheel walker recommended (8) Tremor: Status: Acute Problem details: He has been diagnosed as essential tremor. Suspect alcohol-induced chronic tremor as a contributing factor. Beta-laurel therapy is limited due to low blood pressure (9) Diarrhea: Status: Acute Problem details: Intermittently chronic diarrhea. Monitor. Imodium as needed. Hold lactulose at this time. (10) Alcoholic hepatitis: Status: Acute Problem details: Mild to moderate. Continue to monitor. Improving (11) Macrocytic anemia: Status: Acute Problem details: Likely due to alcohol abuse. Monitor for bleeding. (12) Hypotension: Status: Acute Problem details: By history is an acute on chronic problem. Continue to monitor. No life-threatening cause such as bleeding, sepsis, heart failure, is apparent. Caution with use of spironolactone and beta-laurel (13) HIV positive: Status: Chronic Problem details: - Follows at [facility] [place], treated with Biktarvy (14) Tobacco use disorder: Status: Chronic Problem details: Nicotine replacement DS: Summary Hospital Course Hospital Course: Edmar Zamora is a 59 year old male with history of alcohol abuse, alcohol withdrawal seizure, anal cancer in remission, HIV, protein calorie malnutrition presented through the emergency department for concerns of falls and weakness. He tells me that he noticed 1 day about 4 weeks ago that both legs were swollen when he was taking his socks off. He was in this hospital last year for diffuse and extensive lower extremity edema thought to be secondary to ibuprofen use at that time. That had resolved and he had no swelling until recently. He has not taken any ibuprofen since last year when that happened. He also denies any use of thing [id number] except for acetaminophen, specifically he denies taking Aleve, Advil, Motrin, naproxen, or ibuprofen. He tells me that he has been feeling weak and falling daily since the swelling started. The reason he came to the ER today was because he fell twice at work. Because of the weakness and has been hard for him to get back up once he falls. He scraped his right cadet when he fell today, but denies any other injuries from today's falls. He was hospitalized here in December of 2023 with anasarca. This was thought to be a complication of NSAID use. He was treated with furosemide and his edema improved. Eventually the furosemide was discontinued. His edema has come back. He has a history of alcohol use disorder. He reports that he went through treatment in the past. He also apparently had an alcohol withdrawal seizure at some point in the past as well. He reports drinking 2 alcoholic beverages per night. He denies a problem with alcohol. On admission there was concern about his nutritional status. He does report that he has a chronic poor appetite. He has been able to eat but reports that he gets nauseated if he eats too much. He has chronic intermittent diarrhea as well. He is not having bloody diarrhea. He has a history of HIV infection. He is on Biktarvy. He reports his HIV viral load is undetectable for 14 years. He has a history of anal cancer diagnosed on April of 2017. Over the next 2 years he had both radiation and chemotherapy for this. At the completion of that therapy was the beginning of COVID and he has not had any follow-up since then. He is not aware of any recurrence. He designates his sister Iris who lives in [place] as healthcare power of commercial real estate attorney. Code status is DNR 10/08/2024: Patient reports that he is feeling stronger today. Therapy notes improvement. Recommending front wheel walker at home. Still having some diarrhea. Typically 2 loose stools per day. This is been a chronic problem since treatment for his anal cancer. Has had more recent colonoscopy which has been normal. Takes Imodium 2 mg daily at home. Reports his appetite is improved today. Blood pressure has been low which is also a chronic problem for him. Last hospitalization his propranolol was reduced to 10 mg daily due to low blood pressure. 10/09/2024: Patient is seen about 11:00 a.m. this morning. He reports he is exhausted from all the activity the morning, therapy, shower. No other concerns. Status at Discharge Functional status at discharge: uses cane/walker Overall status at discharge: patient is progressing back to baseline Time Spent with Patient Time attestation: Total time spent providing and/or coordinating discharge services: 40 minutes Exam Narrative: Exam Narrative: He is alert and appears in no distress. Coarse intention tremor noted unchanged. Vital signs noted. Breathing is unlabored. He is oriented to his circumstances. Const: Vital Signs, click to edit/add: Vital Signs - 24 hr 10/08/24 15:00 10/08/24 15:00 10/08/24 15:00 Temperature Pulse Rate 79 Pulse Rate [Pulse Oximeter] 84 Respiratory Rate 16 16 Blood Pressure [Ri ght Arm] Pulse Oximetry 93 Oxygen Delivery Me thod Room Air 10/08/24 15:00 10/08/24 16:00 10/08/24 19:00 Temperature 97.9 F 97.9 F 97.6 F Pulse Rate Pulse Rate [Pulse Oximeter] 84 84 81 Respiratory Rate 16 16 20 Blood Pressure [Ri ght Arm] 91/65 91/65 107/76 Pulse Oximetry 93 93 94 Oxygen Delivery Me thod Room Air Room Air Room Air 10/08/24 21:25 10/09/24 00:46 10/09/24 00:46 Temperature 97.4 F L 97.2 F L Pulse Rate Pulse Rate [Pulse Oximeter] 76 70 Respiratory Rate 20 20 Blood Pressure [Ri ght Arm] 109/76 101/74 Pulse Oximetry 97 93 94 Oxygen Delivery Me thod Room Air Room Air Room Air 10/09/24 00:51 10/09/24 01:01 10/09/24 04:34 Temperature 97.2 F L 97.6 F Pulse Rate 69 Pulse Rate [Pulse Oximeter] 70 60 Respiratory Rate 20 18 Blood Pressure [Ri ght Arm] 101/74 110/78 Pulse Oximetry 94 93 Oxygen Delivery Me thod Room Air Room Air 10/09/24 04:36 10/09/24 07:00 10/09/24 07:00 Temperature 97.6 F 97.7 F Pulse Rate 70 Pulse Rate [Pulse Oximeter] 60 86 Respiratory Rate 18 18 Blood Pressure [Ri ght Arm] 110/78 102/72 Pulse Oximetry 93 95 Oxygen Delivery Me thod Room Air Room Air 10/09/24 07:00 10/09/24 11:00 Temperature 97.7 F Pulse Rate Pulse Rate [Pulse Oximeter] 79 Respiratory Rate 18 16 Blood Pressure [Ri ght Arm] 109/80 Pulse Oximetry 95 97 Oxygen Delivery Me thod Room Air Room Air Documenting provider has reviewed patient's vital signs: yes DS: Data Data Completed and Pending Labs on day of discharge: Labs from last 24 hours 10/09/24 10/06/24 05:51 23:54 Sodium 137 Potassium 4.3 Chloride 104 Carbon Dioxide 33 H Anion Gap 0 L BUN 8 Creatinine 0.6 Estimated Creat Clear 121.83 Estimated GFR 113 Glucose 95 Calcium 9.0 RBC Fol Ochoa for Serum >22.3 Discharge Plan Discharge Disposition: Home, Self-Care Date of Admission: 10/07/24 14:36 Attending Provider on Discharge: Jose Little Primary Care Provider: Provider,Not a Local Condition: Stable Anticipated Discharge Date/Time: 10/09/24 07:34 Discharge Medications: New spironolactone 25 mg Tablet 25 mg PO DAILY Qty: 30 0RF gabapentin 300 mg Capsule 300 mg PO TID Qty: 90 0RF Continued bupropion HCl 150 mg tablet sustained-release 12 hr 150 mg PO DAILY propranolol 10 mg tablet 10 mg PO DAILY folic acid 1 mg tablet 1 mg PO DAILY oxybutynin chloride 5 mg tablet 5 mg PO HS rosuvastatin 10 mg tablet 10 mg PO DAILY duloxetine 30 mg capsule,delayed release(DR/EC) 30 mg PO DAILY Certavite-Antioxidant 18-400 mg-mcg tablet 1 tab PO DAILY acetaminophen 500 mg tablet 500 mg PO Q6H PRN Biktarvy 50-200-25 mg tablet 1 tab PO DAILY trazodone 100 mg tablet 200 mg PO HS Discharge Orders: Discharge Order (Routine); Ordered 10/09/24 Ordered By: Jose Little Additional Instructions: Your medical problems that we were treating in the hospital were caused by (or made worse by) drinking alcohol. I urged due to abstain from alcohol. This is difficult to do and you more likely to be successful if you engage with professional help. We have offered you resources for this. Activity Level: Activity as Tolerated and Use Walker Discharge Diet: Heart Healthy (2 gm sodium, low fat) Follow Up Appointments: Provider,Not a Local [Primary Care Provider, Family Practice] Referral Note: Patient would like to establish care with a provider at [facility] [place] in [place]. That appointment should occur in about 1 week. Check basic metabolic panel at that time. Tyler Johnston MD [Staff Physician, Family Practice] - 10/17/24 2:15 pm Referral Note: [facility] for follow-up, have basic metabolic panel check at that time. Forms: [employer] Info Instructions
--- NOTE | 2024-10-09 12:48 | PC.SOCIAL ---
[employer] Consult: SW met with patient to discuss resources and support. Patient states that he is doing well, but would like a doctors note for work of the days that he was here and any work restrictions he may have. Patient did mention finances as a concern. SW provided information for [facility], [facility] [employer] [facility] and [address] [place] [address]. Patient states that is brother is also going to come to town who is supportive to help him navigate finances. SW inquired about any support patient may need around substance/alcohol use and patient declined needing/wanting any support. Patient had no other questions or concerns at this time.
--- NOTE | 2024-10-09 13:33 | NUTR.NU ---
RDN with MD consult for weight loss and nutrition screen related to positive skin risk. Patient admitted for hypokalemia, weakness, and falls. Has history of alcohol abuse and protein calorie malnutrition. Current weight 139lb 12.8oz; height 5ft 9in; BMI 20.6 kg/m2. Limited weight history to assess, however weight has been stable since December 2023. Current diet is Regular. Meal intakes since admit have mainly been 50%+. RDN attempted to visit with patient multiple times, however he was not available. He discharged today.
--- NOTE | 2024-10-09 16:08 | PC.NURSE ---
Pt discharged @ 1352, by self. Driving self back to home, okayed per MD Little. IV removed. Belonging and discharge forms signed. Wallet and Medication (Trazodone) sent home with patient that was in med room locked away. Pt in good condition. Final room check complete.
[2024-10-11 09:19] LABS: Vitamin B6 (Pyridoxal 5-Phos) 12.5 nmol/L (20.0-125.0)
== END 2024-10-09 13:52 | disposition home or self-care (01) | DRG 896 ==
LOC: ED 19:45 → MEDSURG 20:42
PROVIDERS: Family Medicine; Admitting Provider Family Medicine; Emergency Provider Family Medicine; Visit Provider Family Medicine
DX: F10.188 Alcohol abuse with other alcohol-induced disorder (principal); E43 Unspecified severe protein-calorie malnutrition; B20 Human immunodeficiency virus [HIV] disease; F33.1 Major depressive disorder, recurrent, moderate; I50.22 Chronic systolic (congestive) heart failure; G72.1 Alcoholic myopathy; E87.6 Hypokalemia; F10.129 Alcohol abuse with intoxication, unspecified; Y90.4 Blood alcohol level of 80-99 mg/100 ml; I95.9 Hypotension, unspecified; M62.84 Sarcopenia; R27.0 Ataxia, unspecified; K70.10 Alcoholic hepatitis without ascites; R94.31 Abnormal electrocardiogram [ECG] [EKG]; Z91.81 History of falling; Z68.20 Body mass index [BMI] 20.0-20.9, adult; R60.9 Edema, unspecified; D53.9 Nutritional anemia, unspecified; G62.9 Polyneuropathy, unspecified; R25.1 Tremor, unspecified; K52.9 Noninfective gastroenteritis and colitis, unspecified; F41.9 Anxiety disorder, unspecified; F17.210 Nicotine dependence, cigarettes, uncomplicated; Z79.1 Long term (current) use of non-steroidal anti-inflammatories (NSAID); Z85.048 Personal history of other malignant neoplasm of rectum, rectosigmoid junction, and anus
CPT/HCPCS: 36415; 51798; 80048; 80053; 80076; 80306; 81001; 82077; 82607; 82746; 83605; 83735; 84132; 84207; 84443; 85025; 85610; 85730; 87086; 93005; 93971; 97110; 97116; 97161; 97165; 97535; 99284; 99285; A9153; A9270; G0378; J2060; J3411; J3480; J7030; S0106; S4990